=== PATIENT | male | born 1965 | race Caucasian/White ===

== ENCOUNTER 2018-09-17 17:11 | Emergency (ER) | payer SELFPAY ==
[2018-09-17 17:56] LABS: ADD MAN DIFF? NO
[2018-09-17 18:01] LABS: ABNORMAL IP MESSAGE 1; BASOPHILS % 0.2 % (0.0-2.0); HEMOGLOBIN 9.1 g/dl (14.0-18.0); LYMPHOCYTES # 1.1 10^3/ul (0.8-2.9); LYMPHOCYTES % 21.1 % (15.0-51.0); MEAN CORPUSCULAR HEMOGLOBIN 31.3 pg (29.0-33.0); MEAN CORPUSCULAR HGB CONC 33.7 g/dl (32.0-37.0); MEAN CORPUSCULAR VOLUME 92.8 fl (82.0-101.0); MEAN PLATELET VOLUME 8.8 fl (7.4-10.4); MONOCYTE # 0.8 10^3/ul (0.3-0.9); MONOCYTES % 14.8 % (0.0-11.0); NEUTROPHILS % 56.1 % (39.0-77.0); PLATELET COUNT 117 10^3/UL (140-415); POSITIVE DIFF @See below; RED BLOOD COUNT 2.91 10^6/ul (4.70-6.10); RED CELL DISTRIBUTION WIDTH 13.2 % (11.5-14.5)
[2018-09-17 18:01] LABS: WHITE BLOOD COUNT 5.4 10^3/ul (4.8-10.8)
[2018-09-17] MEDS: KETOROLAC 15 MG INJ IV (18:05)
[2018-09-17] MEDS: SOD CHLORIDE 0.9% 1,000 ML IV (18:05)
[2018-09-17] MEDS: ACETAMINOPHEN 500 MG TAB PO (18:08)
[2018-09-17 18:18] LABS: ANION GAP 11 (5-13); BLOOD UREA NITROGEN 14 mg/dl (7-20); CALCIUM 8.8 mg/dl (8.4-10.2); CARBON DIOXIDE 24 mmol/L (21-31); CHLORIDE 98 mmol/L (97-110); CREATININE 0.83 mg/dl (0.61-1.24); Estimated GFR > 60 mL/min (>60); GLUCOSE 109 mg/dl (70-220); SODIUM 133 mmol/L (135-144)
[2018-09-17 19:19] LABS: LYMPHOCYTES % (M) 24 % (15-51); REACTIVE LYMPHOCYTES% (M) 1 % (0-0)
[2018-09-17 19:19] LABS: SEGMENTED NEUTROPHILS (M) % 67 % (39-77)
[2018-09-17 19:20] LABS: METAMYELOCYTES %M 1 % (0-0); MONOCYTES % (M) 6 % (0-11); PATH REVIEW? YES
[2018-09-18 08:53] LABS: PATH REVIEW DK
[2018-09-18 09:09] LABS: BAND NEUTROPHILS % (M) 1 % (0-4); LYMPHOCYTES #M 1.4 10^3/ul (0.8-2.9); LYMPHOCYTES % (M) 27 % (15-51); MONOCYTE #M 0.3 10^3/ul (0.3-0.9); MONOCYTES % (M) 7 % (0-11); MYELOCYTES % (M) 1 % (0-0); SEG NEUT #M 3.2 10^3/ul (1.7-7.5); SEGMENTED NEUTROPHILS (M) % 60 % (39-77)
== END 2018-09-17 19:10 | disposition home or self-care (01) ==
LOC: E/R 17:11
DX: J20.9 Acute bronchitis, unspecified (principal); I10 Essential (primary) hypertension; E11.9 Type 2 diabetes mellitus without complications; D64.9 Anemia, unspecified
CPT/HCPCS: 36415; 71045; 80048; 85025; 96374; 99284-25

== ENCOUNTER 2018-09-18 14:36 | Inpatient (IN) | payer MEDICAID ==
[2018-09-18 15:20] LABS: ADD MAN DIFF? NO
[2018-09-18 15:24] LABS: WHITE BLOOD COUNT 5.8 10^3/ul (4.8-10.8)
[2018-09-18 15:24] LABS: BASOPHILS % 0.2 % (0.0-2.0); HEMATOCRIT 25.7 % (42.0-52.0); HEMOGLOBIN 8.8 g/dl (14.0-18.0); LYMPHOCYTES # 1.4 10^3/ul (0.8-2.9); LYMPHOCYTES % 24.2 % (15.0-51.0); MEAN CORPUSCULAR HEMOGLOBIN 31.1 pg (29.0-33.0); MEAN CORPUSCULAR HGB CONC 34.2 g/dl (32.0-37.0); MEAN CORPUSCULAR VOLUME 90.8 fl (82.0-101.0); MONOCYTE # 0.8 10^3/ul (0.3-0.9); MONOCYTES % 13.1 % (0.0-11.0); NEUTROPHIL # 3.3 10^3/ul (1.6-7.5); NEUTROPHILS % 57.5 % (39.0-77.0); PLATELET COUNT 107 10^3/UL (140-415); POSITIVE DIFF @See below; RED BLOOD COUNT 2.83 10^6/ul (4.70-6.10); RED CELL DISTRIBUTION WIDTH 13.4 % (11.5-14.5)
[2018-09-18 15:46] LABS: ALANINE AMINOTRANSFERASE 22 IU/L (13-69); ALBUMIN 3.4 g/dl (3.3-4.9); ALKALINE PHOSPHATASE 81 IU/L (42-121); ANION GAP 13 (5-13); ASPARTATE AMINO TRANSFERASE 17 IU/L (15-46); BILIRUBIN,INDIRECT 0.6 mg/dl (0-1.1); BILIRUBIN,TOTAL 0.6 mg/dl (0.2-1.3); BLOOD UREA NITROGEN 21 mg/dl (7-20); CALCIUM 8.5 mg/dl (8.4-10.2); CARBON DIOXIDE 20 mmol/L (21-31); CHLORIDE 100 mmol/L (97-110); CREATININE 1.15 mg/dl (0.61-1.24); Estimated GFR > 60 mL/min (>60); GLUCOSE 152 mg/dl (70-220); LACTATE DEHYDROGENASE 597 IU/L (313-618); LIPASE 23 U/L (23-300); POTASSIUM 3.8 mmol/L (3.5-5.1); SODIUM 133 mmol/L (135-144); TOTAL PROTEIN 7.6 g/dl (6.1-8.1)
[2018-09-18 16:05] LABS: LYMPHOCYTES #M 1.5 10^3/ul (0.8-2.9); LYMPHOCYTES % (M) 27 % (15-51); MONOCYTE #M 0.1 10^3/ul (0.3-0.9); MONOCYTES % (M) 2 % (0-11); PLATELET ESTIMATE NORMAL; POLYCHROMASIA 1+ (0-0); PROMYELOCYTES % (M) 1 % (0-0); SEGMENTED NEUTROPHILS (M) % 63 % (39-77); SMUDGE%M 3 % (0-0)
[2018-09-18] MEDS ORDERED: ONDANSETRON 4 MG INJ IV (16:30)
[2018-09-18] MEDS ORDERED: ACETAMINOPHEN 325 MG TAB PO (16:30)
[2018-09-18] MEDS ORDERED: GLUCOSE GEL 15 GRAM TUBE BUCCAL (18:00)
[2018-09-18] MEDS ORDERED: DEXTROSE 50% 50 ML SYRINGE IV ×2 (18:00)
[2018-09-18] MEDS ORDERED: GLUCOSE GEL 15 GRAM TUBE PO ×2 (18:00)
[2018-09-18] MEDS ORDERED: GLUCAGON 1 MG INJ IM (18:00)
[2018-09-18] MEDS: INSULIN ASPART [NOVOLOG] 3 ML PEN SC ×2 (18:00→21:00)
[2018-09-18 19:17] LABS: HEMOGLOBIN A1C 9.6 % (0-5.9)
[2018-09-18 19:25] LABS: IRON 18 ug/dl (35-150)
[2018-09-18 19:34] LABS: % IRON SATURATION 9 % SAT (22-52); TOTAL IRON BINDING CAPACITY 192 ug/dl (241-421)
[2018-09-18] MEDS: SOD CHLORIDE 0.9% 1,000 ML IV (20:50)
[2018-09-18] MEDS: LISINOPRIL 20 MG TAB PO (22:04)
[2018-09-18] MEDS: METOPROLOL 50 MG TAB PO (22:05)
[2018-09-18] MEDS: POLYETHYLENE GLYCOL 17 GM PACKET PO (22:08)
[2018-09-18] MEDS: INSULIN GLARGINE [LANTus] (100 UNITS/ML) SYG SC (22:14)
[2018-09-19] MEDS: SOD CHLORIDE 0.9% 1,000 ML IV ×2 (04:00→12:27)
[2018-09-19 06:23] LABS: ABNORMAL IP MESSAGE 1; MEAN CORPUSCULAR HGB CONC 33.3 g/dl (32.0-37.0); MEAN PLATELET VOLUME 9.3 fl (7.4-10.4); PLATELET COUNT 115 10^3/UL (140-415); POSITIVE DIFF @See below; RED BLOOD COUNT 2.58 10^6/ul (4.70-6.10); RED CELL DISTRIBUTION WIDTH 13.6 % (11.5-14.5)
[2018-09-19 06:23] LABS: WHITE BLOOD COUNT 2.8 10^3/ul (4.8-10.8)
[2018-09-19 06:28] LABS: ADD MAN DIFF? YES
[2018-09-19 06:46] LABS: CHOL/HDL RATIO 3.5 RATIO; CHOLESTEROL 84 mg/dl (100-200); HDL CHOLESTEROL 24 mg/dl (28-71); LDL CHOLESTEROL,CALCULATED 46 mg/dl; MAGNESIUM 1.9 mg/dl (1.7-2.5); TRIGLYCERIDES 70 mg/dl (0-149)
[2018-09-19 06:46] LABS: PHOSPHORUS 3.3 mg/dl (2.5-4.9)
[2018-09-19 06:51] LABS: ALANINE AMINOTRANSFERASE 20 IU/L (13-69); ALBUMIN/GLOBULIN RATIO 0.81; ALKALINE PHOSPHATASE 67 IU/L (42-121); ANION GAP 9 (5-13); ASPARTATE AMINO TRANSFERASE 13 IU/L (15-46); BILIRUBIN,INDIRECT 0.5 mg/dl (0-1.1); BILIRUBIN,TOTAL 0.5 mg/dl (0.2-1.3); BLOOD UREA NITROGEN 16 mg/dl (7-20); CALCIUM 8.6 mg/dl (8.4-10.2); CARBON DIOXIDE 22 mmol/L (21-31); CHLORIDE 104 mmol/L (97-110); CREATININE 0.75 mg/dl (0.61-1.24); Estimated GFR > 60 mL/min (>60); GLUCOSE 129 mg/dl (70-220); POTASSIUM 3.6 mmol/L (3.5-5.1); SODIUM 135 mmol/L (135-144); TOTAL PROTEIN 6.7 g/dl (6.1-8.1)
[2018-09-19 07:58] LABS: ANISOCYTOSIS 1+ (0-0); BAND NEUTROPHILS #M 0.1 10^3/ul (0.0-0.6); BAND NEUTROPHILS % (M) 5 % (0-4); BURR CELLS 1+ (0-0); LYMPHOCYTES #M 1.2 10^3/ul (0.8-2.9); LYMPHOCYTES % (M) 44 % (15-51); MONOCYTES % (M) 1 % (0-11); MYELOCYTES % (M) 1 % (0-0); PLATELET ESTIMATE DECREASED; POIKILOCYTOSIS 1+ (0-0); POLYCHROMASIA 1+ (0-0); PROMYELOCYTES % (M) 2 % (0-0); SEG NEUT #M 1.2 10^3/ul (1.6-7.5); SEGMENTED NEUTROPHILS (M) % 43 % (39-77); SMUDGE%M 10 % (0-0)
[2018-09-19] MEDS: POLYETHYLENE GLYCOL 17 GM PACKET PO ×2 (08:10→21:00)
[2018-09-19] MEDS: LISINOPRIL 20 MG TAB PO (08:11)
[2018-09-19] MEDS: METOPROLOL 50 MG TAB PO (08:11)
[2018-09-19] MEDS: INSULIN ASPART [NOVOLOG] 3 ML PEN SC ×4 (08:12→22:00)
[2018-09-19 08:27] LABS: C-REACTIVE PROTEIN 24.7 mg/dl (0.0-0.9)
[2018-09-19 08:42] LABS: ERYTHROCYTE SEDIMENTATION RATE 128 mm/Hr (0-20)
[2018-09-19 11:14] LABS: PLATELET COUNT 115 10^3/UL (140-415)
[2018-09-19 11:28] LABS: URIC ACID 3.8 mg/dl (3.1-7.9)
[2018-09-19 11:30] LABS: PARTIAL THROMBOPLASTIN TIME 35.3 Sec (23.0-35.0); PROTIME 15.3 Sec (11.9-14.9); PT RATIO 1.2
[2018-09-19 11:31] LABS: THROMBIN TIME 13.7 SEC (13.8-19.1)
[2018-09-19 11:34] LABS: D-DIMER 2830.41 ng/ml (<460)
[2018-09-19] MEDS: MAGNESIUM CITRATE 300 ML BTL PO (12:24)
[2018-09-19 17:21] LABS: OCCULT BLOOD STOOL NEGATIVE (NEGATIVE)
[2018-09-19] MEDS: ACETAMINOPHEN 325 MG TAB PO (19:35)
[2018-09-19] MEDS: INSULIN GLARGINE [LANTus] (100 UNITS/ML) SYG SC (21:58)
[2018-09-20 05:40] LABS: ABNORMAL IP MESSAGE 1; HEMATOCRIT 23.7 % (42.0-52.0); HEMOGLOBIN 7.9 g/dl (14.0-18.0); MEAN CORPUSCULAR HEMOGLOBIN 31.2 pg (29.0-33.0); MEAN CORPUSCULAR HGB CONC 33.3 g/dl (32.0-37.0); MEAN CORPUSCULAR VOLUME 93.7 fl (82.0-101.0); MEAN PLATELET VOLUME 8.6 fl (7.4-10.4); PLATELET COUNT 115 10^3/UL (140-415); POSITIVE DIFF @See below; RED BLOOD COUNT 2.53 10^6/ul (4.70-6.10); RED CELL DISTRIBUTION WIDTH 13.7 % (11.5-14.5)
[2018-09-20 05:40] LABS: WHITE BLOOD COUNT 3.8 10^3/ul (4.8-10.8)
[2018-09-20 05:53] LABS: PHOSPHORUS 3.1 mg/dl (2.5-4.9)
[2018-09-20 05:58] LABS: ADD MAN DIFF? YES
[2018-09-20 06:12] LABS: ALANINE AMINOTRANSFERASE 25 IU/L (13-69); ALBUMIN 3.1 g/dl (3.3-4.9); ALBUMIN/GLOBULIN RATIO 0.83; ALKALINE PHOSPHATASE 77 IU/L (42-121); ANION GAP 8 (5-13); ASPARTATE AMINO TRANSFERASE 17 IU/L (15-46); BILIRUBIN,INDIRECT 0.5 mg/dl (0-1.1); BILIRUBIN,TOTAL 0.5 mg/dl (0.2-1.3); BLOOD UREA NITROGEN 12 mg/dl (7-20); CALCIUM 8.3 mg/dl (8.4-10.2); CARBON DIOXIDE 25 mmol/L (21-31); CHLORIDE 104 mmol/L (97-110); CREATININE 0.71 mg/dl (0.61-1.24); Estimated GFR > 60 mL/min (>60); GLUCOSE 139 mg/dl (70-220); POTASSIUM 3.9 mmol/L (3.5-5.1); SODIUM 137 mmol/L (135-144); TOTAL PROTEIN 6.8 g/dl (6.1-8.1)
[2018-09-20 06:18] LABS: INR 1.13; PROTIME 14.6 Sec (11.9-14.9); PT RATIO 1.1
[2018-09-20 06:19] LABS: PARTIAL THROMBOPLASTIN TIME 33.1 Sec (23.0-35.0)
[2018-09-20] MEDS: SOD CHLORIDE 0.9% 1,000 ML IV (08:06)
[2018-09-20 08:07] LABS: ANISOCYTOSIS 1+ (0-0); BAND NEUTROPHILS % (M) 2 % (0-4); BASOPHILS % (M) 2 % (0-2); LYMPHOCYTES #M 1.3 10^3/ul (0.8-2.9); LYMPHOCYTES % (M) 36 % (15-51); MONOCYTE #M 0.1 10^3/ul (0.3-0.9); MONOCYTES % (M) 4 % (0-11); PLATELET ESTIMATE DECREASED; POLYCHROMASIA 1+ (0-0); REACTIVE LYMPHOCYTES% (M) 2 % (0-0); SEGMENTED NEUTROPHILS (M) % 52 % (39-77); SMUDGE%M 8 % (0-0); TEAR DROP CELLS 1+ (0-0)
[2018-09-20] MEDS: POLYETHYLENE GLYCOL 17 GM PACKET PO ×2 (08:07→20:44)
[2018-09-20] MEDS: METOPROLOL 50 MG TAB PO (08:07)
[2018-09-20] MEDS: LISINOPRIL 20 MG TAB PO (08:08)
[2018-09-20] MEDS: INSULIN ASPART [NOVOLOG] 3 ML PEN SC ×4 (08:20→20:47)
[2018-09-20 11:41] LABS: LACTIC ACID 1.2 mmol/L (0.5-2.0)
[2018-09-20] MEDS: ACETAMINOPHEN 325 MG TAB PO (14:28)
[2018-09-20] MEDS: INSULIN GLARGINE [LANTus] (100 UNITS/ML) SYG SC (20:46)
[2018-09-21] MEDS ORDERED: hydrALAzine 20 MG INJ IV (03:30)
[2018-09-21] MEDS: SOD CHLORIDE 0.9% 1,000 ML IV ×2 (03:36→23:20)
[2018-09-21] MEDS: INSULIN ASPART [NOVOLOG] 3 ML PEN SC ×4 (08:53→21:28)
[2018-09-21 11:47] LABS: HAPTOGLOBIN 470 mg/dL (43-212)
[2018-09-21] MEDS: ACETAMINOPHEN 325 MG TAB PO ×2 (11:48→19:35)
[2018-09-21] MEDS: METOPROLOL 50 MG TAB PO (11:54)
[2018-09-21] MEDS: LISINOPRIL 20 MG TAB PO (11:55)
[2018-09-21] MEDS ORDERED: ALBUTEROL/IPRATROPIUM (NEB) 3 ML AMP HHN (12:30)
[2018-09-21] MEDS: POLYETHYLENE GLYCOL 17 GM PACKET PO ×2 (12:30→21:28)
[2018-09-21 12:34] LABS: ABNORMAL IP MESSAGE 1; HEMATOCRIT 21.5 % (42.0-52.0); HEMOGLOBIN 7.1 g/dl (14.0-18.0); MEAN CORPUSCULAR HEMOGLOBIN 31.3 pg (29.0-33.0); MEAN CORPUSCULAR VOLUME 94.7 fl (82.0-101.0); MEAN PLATELET VOLUME 8.6 fl (7.4-10.4); PLATELET COUNT 109 10^3/UL (140-415); POSITIVE DIFF @See below; RED BLOOD COUNT 2.27 10^6/ul (4.70-6.10); RED CELL DISTRIBUTION WIDTH 13.4 % (11.5-14.5)
[2018-09-21 12:37] LABS: ADD MAN DIFF? YES
[2018-09-21 13:16] LABS: ALANINE AMINOTRANSFERASE 29 IU/L (13-69); ALBUMIN 2.9 g/dl (3.3-4.9); ALKALINE PHOSPHATASE 66 IU/L (42-121); ANION GAP 6 (5-13); ASPARTATE AMINO TRANSFERASE 16 IU/L (15-46); BILIRUBIN,INDIRECT 0.5 mg/dl (0-1.1); BILIRUBIN,TOTAL 0.5 mg/dl (0.2-1.3); BLOOD UREA NITROGEN 8 mg/dl (7-20); CALCIUM 7.9 mg/dl (8.4-10.2); CARBON DIOXIDE 25 mmol/L (21-31); CHLORIDE 104 mmol/L (97-110); CREATININE 0.63 mg/dl (0.61-1.24); Estimated GFR > 60 mL/min (>60); GLUCOSE 153 mg/dl (70-220); POTASSIUM 3.9 mmol/L (3.5-5.1); SODIUM 135 mmol/L (135-144); TOTAL PROTEIN 6.5 g/dl (6.1-8.1)
[2018-09-21 14:03] LABS: ANISOCYTOSIS 1+ (0-0); BAND NEUTROPHILS % (M) 2 % (0-4); BURR CELLS 1+ (0-0); LYMPHOCYTES #M 1.3 10^3/ul (0.8-2.9); LYMPHOCYTES % (M) 46 % (15-51); MICROCYTOSIS 1+ (0-0); MONOCYTE #M 0.1 10^3/ul (0.3-0.9); MONOCYTES % (M) 5 % (0-11); MYELOCYTES % (M) 2 % (0-0); OVALOCYTES 1+ (0-0); PLATELET ESTIMATE DECREASED; POLYCHROMASIA 3+ (0-0); SEG NEUT #M 1.1 10^3/ul (1.6-7.5); SEGMENTED NEUTROPHILS (M) % 35 % (39-77); SMUDGE%M 5 % (0-0); TEAR DROP CELLS 1+ (0-0)
[2018-09-21 19:28] LABS: OCCULT BLOOD STOOL NEGATIVE (NEGATIVE)
[2018-09-21] MEDS: INSULIN GLARGINE [LANTus] (100 UNITS/ML) SYG SC (21:26)
[2018-09-22 06:01] LABS: ABNORMAL IP MESSAGE 1; HEMATOCRIT 21.2 % (42.0-52.0); MEAN CORPUSCULAR HEMOGLOBIN 31.2 pg (29.0-33.0); MEAN CORPUSCULAR HGB CONC 32.5 g/dl (32.0-37.0); MEAN CORPUSCULAR VOLUME 95.9 fl (82.0-101.0); PLATELET COUNT 106 10^3/UL (140-415); POSITIVE DIFF @See below; RED BLOOD COUNT 2.21 10^6/ul (4.70-6.10); RED CELL DISTRIBUTION WIDTH 13.8 % (11.5-14.5)
[2018-09-22 06:14] LABS: ADD MAN DIFF? YES; HEMOGLOBIN 6.9 g/dl (14.0-18.0)
[2018-09-22 06:28] LABS: ANION GAP 11 (5-13); BLOOD UREA NITROGEN 9 mg/dl (7-20); CALCIUM 7.9 mg/dl (8.4-10.2); CARBON DIOXIDE 26 mmol/L (21-31); CHLORIDE 102 mmol/L (97-110); CREATININE 0.64 mg/dl (0.61-1.24); Estimated GFR > 60 mL/min (>60); GLUCOSE 115 mg/dl (70-220); POTASSIUM 4.1 mmol/L (3.5-5.1); SODIUM 139 mmol/L (135-144)
[2018-09-22 07:56] LABS: EOSINOPHILS % (M) 1 % (0-7); GIANT THROMBO% (M) 2 % (0-0); LYMPHOCYTES #M 1.5 10^3/ul (0.8-2.9); LYMPHOCYTES % (M) 52 % (15-51); MONOCYTE #M 0.1 10^3/ul (0.3-0.9); MONOCYTES % (M) 5 % (0-11); MYELOCYTES % (M) 2 % (0-0); PLATELET ESTIMATE DECREASED; SEGMENTED NEUTROPHILS (M) % 31 % (39-77); SMUDGE%M 18 % (0-0)
[2018-09-22] MEDS: INSULIN ASPART [NOVOLOG] 3 ML PEN SC ×4 (08:00→20:57)
[2018-09-22] MEDS: POLYETHYLENE GLYCOL 17 GM PACKET PO ×2 (08:59→22:25)
[2018-09-22] MEDS: METOPROLOL 50 MG TAB PO (09:00)
[2018-09-22] MEDS: LISINOPRIL 20 MG TAB PO (09:00)
[2018-09-22 11:20] LABS: ABNORMAL IP MESSAGE 1; HEMATOCRIT 21.6 % (42.0-52.0); HEMOGLOBIN 7.1 g/dl (14.0-18.0); MEAN CORPUSCULAR HGB CONC 32.9 g/dl (32.0-37.0); MEAN CORPUSCULAR VOLUME 94.3 fl (82.0-101.0); MEAN PLATELET VOLUME 8.9 fl (7.4-10.4); PLATELET COUNT 105 10^3/UL (140-415); POSITIVE DIFF @See below; RED BLOOD COUNT 2.29 10^6/ul (4.70-6.10); RED CELL DISTRIBUTION WIDTH 13.7 % (11.5-14.5)
[2018-09-22 11:20] LABS: WHITE BLOOD COUNT 2.9 10^3/ul (4.8-10.8)
[2018-09-22 11:22] LABS: ADD MAN DIFF? YES
[2018-09-22 11:37] LABS: LACTIC ACID 0.9 mmol/L (0.5-2.0)
[2018-09-22] MEDS: FUROSEMIDE 40 MG INJ IV (12:47)
[2018-09-22 12:48] LABS: ANISOCYTOSIS 1+ (0-0); BASOPHILS % (M) 1 % (0-2); LYMPHOCYTES #M 1.2 10^3/ul (0.8-2.9); LYMPHOCYTES % (M) 44 % (15-51); METAMYELOCYTES %M 1 % (0-0); MICROCYTOSIS 1+ (0-0); MONOCYTES % (M) 3 % (0-11); MYELOCYTES % (M) 2 % (0-0); PLATELET ESTIMATE DECREASED; POLYCHROMASIA 1+ (0-0); REACTIVE LYMPHOCYTES% (M) 2 % (0-0); SEGMENTED NEUTROPHILS (M) % 40 % (39-77); SMUDGE%M 11 % (0-0)
[2018-09-22] MEDS: CEFEPIME 2GM/50 ML (PMX) 50 ML IVPB ×2 (14:53→22:25)
[2018-09-22] MEDS: INSULIN GLARGINE [LANTus] (100 UNITS/ML) SYG SC (20:57)
[2018-09-22] MEDS ORDERED: VANCOMYCIN IV PER PHARMACY XX (22:00)
[2018-09-22] MEDS: VANCOMYCIN HCL 1.5 GM in SOD CHLORIDE 0.9% 250 ML IVPB (23:33)
[2018-09-23 05:40] LABS: WHITE BLOOD COUNT 3.5 10^3/ul (4.8-10.8)
[2018-09-23 05:40] LABS: ABNORMAL IP MESSAGE 1; HEMATOCRIT 21.1 % (42.0-52.0); HEMOGLOBIN 7.2 g/dl (14.0-18.0); MEAN CORPUSCULAR HEMOGLOBIN 31.7 pg (29.0-33.0); MEAN CORPUSCULAR HGB CONC 34.1 g/dl (32.0-37.0); MEAN PLATELET VOLUME 8.8 fl (7.4-10.4); PLATELET COUNT 95 10^3/UL (140-415); POSITIVE DIFF @See below; RED BLOOD COUNT 2.27 10^6/ul (4.70-6.10); RED CELL DISTRIBUTION WIDTH 13.4 % (11.5-14.5)
[2018-09-23] MEDS: FUROSEMIDE 40 MG INJ IV (05:50)
[2018-09-23] MEDS: CEFEPIME 2GM/50 ML (PMX) 50 ML IVPB ×3 (05:50→22:01)
[2018-09-23 05:54] LABS: ADD MAN DIFF? YES
[2018-09-23] MEDS: ACETAMINOPHEN 325 MG TAB PO ×2 (05:58→13:33)
[2018-09-23 06:01] LABS: MAGNESIUM 1.8 mg/dl (1.7-2.5)
[2018-09-23 06:03] LABS: ANION GAP 9 (5-13); BLOOD UREA NITROGEN 12 mg/dl (7-20); CARBON DIOXIDE 26 mmol/L (21-31); CHLORIDE 99 mmol/L (97-110); CREATININE 0.61 mg/dl (0.61-1.24); Estimated GFR > 60 mL/min (>60); GLUCOSE 151 mg/dl (70-220); POTASSIUM 3.9 mmol/L (3.5-5.1); SODIUM 134 mmol/L (135-144)
[2018-09-23 07:26] LABS: ANISOCYTOSIS 1+ (0-0); BAND NEUTROPHILS #M 0.2 10^3/ul (0.0-0.6); BAND NEUTROPHILS % (M) 6 % (0-4); LYMPHOCYTES #M 1.7 10^3/ul (0.8-2.9); LYMPHOCYTES % (M) 49 % (15-51); METAMYELOCYTES %M 1 % (0-0); MICROCYTOSIS 1+ (0-0); MONOCYTES % (M) 2 % (0-11); MYELOCYTES % (M) 1 % (0-0); PLATELET ESTIMATE DECREASED; POLYCHROMASIA 1+ (0-0); REACTIVE LYMPHOCYTES% (M) 2 % (0-0); SEG NEUT #M 1.2 10^3/ul (1.6-7.5); SEGMENTED NEUTROPHILS (M) % 33 % (39-77); SMUDGE%M 3 % (0-0)
[2018-09-23] MEDS: INSULIN ASPART [NOVOLOG] 3 ML PEN SC ×4 (08:42→22:21)
[2018-09-23] MEDS: POLYETHYLENE GLYCOL 17 GM PACKET PO ×2 (09:09→21:00)
[2018-09-23] MEDS: VANCOMYCIN 1 GM 250 ML IVPB ×2 (09:10→19:21)
[2018-09-23] MEDS: LISINOPRIL 10 MG TAB PO ×2 (09:10→22:04)
[2018-09-23 12:12] LABS: ADD UMIC NO; UR ASCORBIC ACID NEGATIVE (NEGATIVE); UR BACTERIA FEW /HPF (NONE SEEN); UR BILIRUBIN (Dip) NEGATIVE (NEGATIVE); UR BLOOD (Dip) NEGATIVE (NEGATIVE); UR CLARITY SLIGHTLY CLOUDY (CLEAR); UR COLOR YELLOW (YELLOW); UR GLUCOSE (Dip) 3+ mg/dL (NEGATIVE); UR KETONES (Dip) TRACE mg/dL (NEGATIVE); UR LEUKOCYTE ESTERASE (Dip) NEGATIVE Leu/ul (NEGATIVE); UR MUCUS FEW /HPF (NONE SEEN); UR NITRITE (Dip) NEGATIVE (NEGATIVE); UR RBC 0 /HPF (0-5); UR SPECIFIC GRAVITY (Dip) 1.018 (1.003-1.030); UR TOTAL PROTEIN (Dip) NEGATIVE (NEGATIVE); UR UROBILINOGEN (Dip) NEGATIVE (NEGATIVE); UR WBC 2 /HPF (0-5)
[2018-09-23] MEDS: POTASSIUM CHLORIDE (SR) 20 MEQ TAB PO (22:00)
[2018-09-23] MEDS: MAGNESIUM SULFATE 2 GM/50 ML 50 ML IVPB (22:01)
[2018-09-23] MEDS: FUROSEMIDE 20 MG INJ IV (22:03)
[2018-09-23] MEDS: INSULIN GLARGINE [LANTus] (100 UNITS/ML) SYG SC (22:20)
[2018-09-24 03:02] LABS: WHITE BLOOD COUNT 3.1 10^3/ul (4.8-10.8)
[2018-09-24 03:02] LABS: ABNORMAL IP MESSAGE 1; HEMATOCRIT 21.9 % (42.0-52.0); HEMOGLOBIN 7.2 g/dl (14.0-18.0); MEAN CORPUSCULAR HGB CONC 32.9 g/dl (32.0-37.0); MEAN CORPUSCULAR VOLUME 94.4 fl (82.0-101.0); MEAN PLATELET VOLUME 8.8 fl (7.4-10.4); PLATELET COUNT 92 10^3/UL (140-415); POSITIVE DIFF @See below; RED BLOOD COUNT 2.32 10^6/ul (4.70-6.10); RED CELL DISTRIBUTION WIDTH 13.4 % (11.5-14.5)
[2018-09-24 03:26] LABS: ADD MAN DIFF? YES
[2018-09-24 03:40] LABS: MAGNESIUM 2.6 mg/dl (1.7-2.5)
[2018-09-24 03:41] LABS: ANION GAP 8 (5-13); BLOOD UREA NITROGEN 17 mg/dl (7-20); CALCIUM 7.9 mg/dl (8.4-10.2); CARBON DIOXIDE 23 mmol/L (21-31); CHLORIDE 103 mmol/L (97-110); CREATININE 0.64 mg/dl (0.61-1.24); Estimated GFR > 60 mL/min (>60); GLUCOSE 174 mg/dl (70-220); POTASSIUM 4.4 mmol/L (3.5-5.1); SODIUM 134 mmol/L (135-144)
[2018-09-24 03:50] LABS: VANCOMYCIN,TROUGH 9.2 ug/ml (10.0-20.0)
[2018-09-24] MEDS: VANCOMYCIN 1 GM 250 ML IVPB (04:44)
[2018-09-24 05:03] LABS: ANISOCYTOSIS 1+ (0-0); BASOPHILS % (M) 1 % (0-2); GIANT THROMBO% (M) 2 % (0-0); LYMPHOCYTES #M 1.9 10^3/ul (0.8-2.9); LYMPHOCYTES % (M) 62 % (15-51); MONOCYTES % (M) 3 % (0-11); MYELOCYTES % (M) 2 % (0-0); PLATELET ESTIMATE DECREASED; POLYCHROMASIA 1+ (0-0); SEGMENTED NEUTROPHILS (M) % 31 % (39-77); SMUDGE%M 24 % (0-0)
[2018-09-24] MEDS: CEFEPIME 2GM/50 ML (PMX) 50 ML IVPB ×3 (06:57→22:22)
[2018-09-24] MEDS: FUROSEMIDE 40 MG INJ IV (06:58)
[2018-09-24] MEDS: POLYETHYLENE GLYCOL 17 GM PACKET PO ×2 (08:30→20:48)
[2018-09-24] MEDS: LISINOPRIL 10 MG TAB PO ×2 (08:30→20:48)
[2018-09-24] MEDS: INSULIN ASPART [NOVOLOG] 3 ML PEN SC ×4 (08:39→20:47)
[2018-09-24] MEDS: VANCOMYCIN HCL 1.25 GM in SOD CHLORIDE 0.9% 250 ML IVPB ×2 (11:30→18:29)
[2018-09-24] MEDS: ACETAMINOPHEN 325 MG TAB PO ×2 (12:37→23:39)
[2018-09-24] MEDS: ALLOPURINOL 300 MG TAB PO (15:59)
[2018-09-24] MEDS: INSULIN GLARGINE [LANTus] (100 UNITS/ML) SYG SC (20:45)
[2018-09-25] MEDS: VANCOMYCIN HCL 1.25 GM in SOD CHLORIDE 0.9% 250 ML IVPB ×3 (02:44→20:45)
[2018-09-25 04:33] LABS: IMMEDIATE SPIN CROSSMATCH 1 2
[2018-09-25 05:33] LABS: WHITE BLOOD COUNT 3.6 10^3/ul (4.8-10.8)
[2018-09-25 05:33] LABS: ABNORMAL IP MESSAGE 1; HEMATOCRIT 24.6 % (42.0-52.0); HEMOGLOBIN 8.3 g/dl (14.0-18.0); MEAN CORPUSCULAR HEMOGLOBIN 31.3 pg (29.0-33.0); MEAN CORPUSCULAR HGB CONC 33.7 g/dl (32.0-37.0); MEAN CORPUSCULAR VOLUME 92.8 fl (82.0-101.0); MEAN PLATELET VOLUME 9.2 fl (7.4-10.4); PLATELET COUNT 91 10^3/UL (140-415); POSITIVE DIFF @See below; RED BLOOD COUNT 2.65 10^6/ul (4.70-6.10); RED CELL DISTRIBUTION WIDTH 13.4 % (11.5-14.5)
[2018-09-25 05:46] LABS: ADD MAN DIFF? YES
[2018-09-25 06:07] LABS: ANION GAP 7 (5-13); BLOOD UREA NITROGEN 11 mg/dl (7-20); CALCIUM 7.8 mg/dl (8.4-10.2); CARBON DIOXIDE 25 mmol/L (21-31); CHLORIDE 102 mmol/L (97-110); CREATININE 0.56 mg/dl (0.61-1.24); Estimated GFR > 60 mL/min (>60); GLUCOSE 176 mg/dl (70-220); POTASSIUM 4.1 mmol/L (3.5-5.1); SODIUM 134 mmol/L (135-144)
[2018-09-25 06:11] LABS: LACTATE DEHYDROGENASE 432 IU/L (313-618)
[2018-09-25 06:11] LABS: URIC ACID 2.7 mg/dl (3.1-7.9)
[2018-09-25] MEDS: FUROSEMIDE 40 MG INJ IV (06:27)
[2018-09-25] MEDS: CEFEPIME 2GM/50 ML (PMX) 50 ML IVPB ×3 (06:28→23:30)
[2018-09-25] MEDS: ALLOPURINOL 300 MG TAB PO (08:31)
[2018-09-25] MEDS: POLYETHYLENE GLYCOL 17 GM PACKET PO ×2 (08:31→20:54)
[2018-09-25] MEDS: LISINOPRIL 10 MG TAB PO ×2 (08:32→20:53)
[2018-09-25] MEDS: INSULIN ASPART [NOVOLOG] 3 ML PEN SC ×4 (08:34→20:53)
[2018-09-25 11:02] LABS: VANCOMYCIN,TROUGH 13.1 ug/ml (10.0-20.0)
[2018-09-25] MEDS ORDERED: ONDANSETRON INJ 8 MG in SOD CHLORIDE 0.9% 50 ML IV (14:30)
[2018-09-25] MEDS: ONDANSETRON INJ 16 MG, DEXAMETHASONE 4 MG/ML 20 MG in SOD CHLORIDE 0.9% 50 ML IV (15:46)
[2018-09-25] MEDS: SOD CHLORIDE 0.9% IV ×2 (16:11→17:56)
[2018-09-25] MEDS: DAUNORUBICIN IV (16:11)
[2018-09-25] MEDS: CYTARABINE IV (17:56)
[2018-09-25] MEDS: INSULIN GLARGINE [LANTus] (100 UNITS/ML) SYG SC (20:51)
[2018-09-26] MEDS: VANCOMYCIN HCL 1.25 GM in SOD CHLORIDE 0.9% 250 ML IVPB ×3 (03:59→18:37)
[2018-09-26 05:24] LABS: WHITE BLOOD COUNT 2.1 10^3/ul (4.8-10.8)
[2018-09-26 05:24] LABS: ABNORMAL IP MESSAGE 1; HEMATOCRIT 29.8 % (42.0-52.0); HEMOGLOBIN 9.9 g/dl (14.0-18.0); MEAN CORPUSCULAR HGB CONC 33.2 g/dl (32.0-37.0); MEAN CORPUSCULAR VOLUME 93.4 fl (82.0-101.0); MEAN PLATELET VOLUME 9.9 fl (7.4-10.4); PLATELET COUNT 88 10^3/UL (140-415); POSITIVE DIFF @See below; RED BLOOD COUNT 3.19 10^6/ul (4.70-6.10); RED CELL DISTRIBUTION WIDTH 13.8 % (11.5-14.5)
[2018-09-26 05:36] LABS: ADD MAN DIFF? YES
[2018-09-26] MEDS: CEFEPIME 2GM/50 ML (PMX) 50 ML IVPB ×3 (05:54→21:19)
[2018-09-26] MEDS: FUROSEMIDE 40 MG INJ IV (05:54)
[2018-09-26 05:55] LABS: ANION GAP 13 (5-13); BLOOD UREA NITROGEN 14 mg/dl (7-20); CALCIUM 8.4 mg/dl (8.4-10.2); CARBON DIOXIDE 23 mmol/L (21-31); CHLORIDE 103 mmol/L (97-110); CREATININE 0.61 mg/dl (0.61-1.24); Estimated GFR > 60 mL/min (>60); GLUCOSE 260 mg/dl (70-220); POTASSIUM 4.4 mmol/L (3.5-5.1); SODIUM 139 mmol/L (135-144)
[2018-09-26] MEDS: FENTAnyl 50 MCG/ML VIAL (07:53)
[2018-09-26] MEDS: MIDAZOLAM 1 MG/ML 2 ML INJ ×2 (07:53→07:54)
[2018-09-26] MEDS: LIDOCAINE 1% (MDV) 20 ML INJ ×3 (07:53→07:54)
[2018-09-26] MEDS: POLYETHYLENE GLYCOL 17 GM PACKET PO ×2 (08:25→21:07)
[2018-09-26] MEDS: ALLOPURINOL 300 MG TAB PO (08:25)
[2018-09-26] MEDS: LISINOPRIL 10 MG TAB PO ×2 (08:27→21:07)
[2018-09-26] MEDS: INSULIN ASPART [NOVOLOG] 3 ML PEN SC ×6 (08:27→21:05)
[2018-09-26 09:33] LABS: BAND NEUTROPHILS #M 0.3 10^3/ul (0.0-0.6); BAND NEUTROPHILS % (M) 16 % (0-4); GIANT THROMBO% (M) 3 % (0-0); LYMPHOCYTES #M 0.5 10^3/ul (0.8-2.9); LYMPHOCYTES % (M) 26 % (15-51); MONOCYTE #M 0.2 10^3/ul (0.3-0.9); MONOCYTES % (M) 10 % (0-11); MYELOCYTES % (M) 3 % (0-0); PLATELET ESTIMATE DECREASED; POIKILOCYTOSIS 2+ (0-0); PROMYELOCYTES % (M) 2 % (0-0); SEG NEUT #M 0.5 10^3/ul (1.6-7.5); SEGMENTED NEUTROPHILS (M) % 24 % (39-77); SMUDGE%M 6 % (0-0)
[2018-09-26] MEDS: ONDANSETRON INJ 16 MG, DEXAMETHASONE 4 MG/ML 20 MG in SOD CHLORIDE 0.9% 50 ML IV (16:24)
[2018-09-26] MEDS: DAUNORUBICIN IV (16:35)
[2018-09-26] MEDS: SOD CHLORIDE 0.9% IV ×2 (16:35→18:02)
[2018-09-26] MEDS: CYTARABINE IV (18:02)
[2018-09-26] MEDS: INSULIN GLARGINE [LANTus] (100 UNITS/ML) SYG SC (21:06)
[2018-09-27] MEDS: VANCOMYCIN HCL 1.25 GM in SOD CHLORIDE 0.9% 250 ML IVPB ×3 (02:25→19:07)
[2018-09-27 05:26] LABS: WHITE BLOOD COUNT 1.3 10^3/ul (4.8-10.8)
[2018-09-27 05:26] LABS: ABNORMAL IP MESSAGE 1; HEMATOCRIT 25.3 % (42.0-52.0); HEMOGLOBIN 8.5 g/dl (14.0-18.0); MEAN CORPUSCULAR HGB CONC 33.6 g/dl (32.0-37.0); MEAN CORPUSCULAR VOLUME 92.3 fl (82.0-101.0); MEAN PLATELET VOLUME 10.3 fl (7.4-10.4); PLATELET COUNT 73 10^3/UL (140-415); POSITIVE DIFF @See below; RED BLOOD COUNT 2.74 10^6/ul (4.70-6.10)
[2018-09-27 05:34] LABS: ADD MAN DIFF? YES
[2018-09-27] MEDS: FUROSEMIDE 40 MG INJ IV (05:37)
[2018-09-27] MEDS: CEFEPIME 2GM/50 ML (PMX) 50 ML IVPB ×3 (05:37→23:31)
[2018-09-27 05:54] LABS: ANION GAP 10 (5-13); BLOOD UREA NITROGEN 18 mg/dl (7-20); CALCIUM 7.8 mg/dl (8.4-10.2); CARBON DIOXIDE 20 mmol/L (21-31); CHLORIDE 106 mmol/L (97-110); CREATININE 0.47 mg/dl (0.61-1.24); Estimated GFR > 60 mL/min (>60); GLUCOSE 231 mg/dl (70-220); POTASSIUM 4.4 mmol/L (3.5-5.1); SODIUM 136 mmol/L (135-144)
[2018-09-27] MEDS: ALLOPURINOL 300 MG TAB PO (08:51)
[2018-09-27] MEDS: LISINOPRIL 10 MG TAB PO ×2 (08:52→21:31)
[2018-09-27] MEDS: POLYETHYLENE GLYCOL 17 GM PACKET PO ×2 (08:52→21:29)
[2018-09-27] MEDS: INSULIN ASPART [NOVOLOG] 3 ML PEN SC ×7 (08:59→21:28)
[2018-09-27 09:10] LABS: ANISOCYTOSIS 1+ (0-0); BAND NEUTROPHILS #M 0.1 10^3/ul (0.0-0.6); BAND NEUTROPHILS % (M) 8 % (0-4); DIMORPHIC RBC 3+ (0-0); LYMPHOCYTES #M 0.4 10^3/ul (0.8-2.9); LYMPHOCYTES % (M) 33 % (15-51); MONOCYTES % (M) 7 % (0-11); MYELOCYTES % (M) 3 % (0-0); PLATELET ESTIMATE DECREASED; POIKILOCYTOSIS 3+ (0-0); PROMYELOCYTES % (M) 1 % (0-0); SEG NEUT #M 0.5 10^3/ul (1.6-7.5); SEGMENTED NEUTROPHILS (M) % 39 % (39-77); SMUDGE%M 10 % (0-0)
[2018-09-27 10:30] LABS: VANCOMYCIN,TROUGH 13.3 ug/ml (10.0-20.0)
[2018-09-27] MEDS: ONDANSETRON INJ 16 MG, DEXAMETHASONE 4 MG/ML 20 MG in SOD CHLORIDE 0.9% 50 ML IV (15:40)
[2018-09-27] MEDS: SOD CHLORIDE 0.9% IV ×2 (16:25→18:12)
[2018-09-27] MEDS: DAUNORUBICIN IV (16:25)
[2018-09-27] MEDS: CYTARABINE IV (18:12)
[2018-09-27] MEDS: INSULIN GLARGINE [LANTus] (100 UNITS/ML) SYG SC (21:29)
[2018-09-28] MEDS: VANCOMYCIN HCL 1.25 GM in SOD CHLORIDE 0.9% 250 ML IVPB ×2 (02:41→11:03)
[2018-09-28] MEDS: ACCU-CHEK XX (03:00)
[2018-09-28] MEDS: INSULIN ASPART [NOVOLOG] 3 ML PEN SC ×8 (03:06→20:51)
[2018-09-28 05:19] LABS: ABNORMAL IP MESSAGE 1; HEMOGLOBIN 8.6 g/dl (14.0-18.0); MEAN CORPUSCULAR HEMOGLOBIN 31.5 pg (29.0-33.0); MEAN CORPUSCULAR HGB CONC 34.4 g/dl (32.0-37.0); MEAN CORPUSCULAR VOLUME 91.6 fl (82.0-101.0); MEAN PLATELET VOLUME 10.2 fl (7.4-10.4); PLATELET COUNT 70 10^3/UL (140-415); POSITIVE DIFF @See below; RED BLOOD COUNT 2.73 10^6/ul (4.70-6.10); RED CELL DISTRIBUTION WIDTH 13.5 % (11.5-14.5)
[2018-09-28] MEDS: CEFEPIME 2GM/50 ML (PMX) 50 ML IVPB ×2 (05:27→14:16)
[2018-09-28 05:29] LABS: PHOSPHORUS 4.1 mg/dl (2.5-4.9)
[2018-09-28 05:29] LABS: MAGNESIUM 2.2 mg/dl (1.7-2.5)
[2018-09-28 05:33] LABS: ANION GAP 8 (5-13); BLOOD UREA NITROGEN 16 mg/dl (7-20); CALCIUM 7.9 mg/dl (8.4-10.2); CARBON DIOXIDE 23 mmol/L (21-31); CHLORIDE 105 mmol/L (97-110); CREATININE 0.48 mg/dl (0.61-1.24); Estimated GFR > 60 mL/min (>60); GLUCOSE 203 mg/dl (70-220); POTASSIUM 4.4 mmol/L (3.5-5.1); SODIUM 136 mmol/L (135-144)
[2018-09-28 05:36] LABS: ADD MAN DIFF? YES
[2018-09-28] MEDS: POLYETHYLENE GLYCOL 17 GM PACKET PO ×2 (08:20→20:43)
[2018-09-28] MEDS: ALLOPURINOL 300 MG TAB PO (08:21)
[2018-09-28] MEDS: LISINOPRIL 10 MG TAB PO ×2 (08:21→20:50)
[2018-09-28] MEDS: FUROSEMIDE 20 MG TAB PO (08:21)
[2018-09-28 08:55] LABS: ANISOCYTOSIS 1+ (0-0); BAND NEUTROPHILS % (M) 9 % (0-4); HYPOCHROMASIA 1+ (0-0); LYMPHOCYTES #M 0.3 10^3/ul (0.8-2.9); LYMPHOCYTES % (M) 38 % (15-51); MONOCYTES % (M) 4 % (0-11); PLATELET ESTIMATE DECREASED; SEG NEUT #M 0.5 10^3/ul (1.6-7.5); SEGMENTED NEUTROPHILS (M) % 47 % (39-77); SMUDGE%M 1 % (0-0)
[2018-09-28] MEDS: FLUCONAZOLE 100 MG TAB PO (16:04)
[2018-09-28] MEDS: SOD CHLORIDE 0.9% IV (17:46)
[2018-09-28] MEDS: CYTARABINE IV (17:46)
[2018-09-28] MEDS: DOXYCYCLINE 100 MG TAB PO (20:43)
[2018-09-28] MEDS: ONDANSETRON 4 MG INJ IV (20:43)
[2018-09-28] MEDS: FAMOTIDINE 20 MG TAB PO (20:43)
[2018-09-28] MEDS: INSULIN GLARGINE [LANTus] (100 UNITS/ML) SYG SC (20:48)
[2018-09-29] MEDS: LEVOFLOXACIN 500 MG TAB PO (05:45)
[2018-09-29 05:46] LABS: WHITE BLOOD COUNT 1.9 10^3/ul (4.8-10.8)
[2018-09-29 05:46] LABS: ABNORMAL IP MESSAGE 1; HEMATOCRIT 25.6 % (42.0-52.0); HEMOGLOBIN 8.8 g/dl (14.0-18.0); MEAN CORPUSCULAR HEMOGLOBIN 31.2 pg (29.0-33.0); MEAN CORPUSCULAR HGB CONC 34.4 g/dl (32.0-37.0); MEAN CORPUSCULAR VOLUME 90.8 fl (82.0-101.0); MEAN PLATELET VOLUME 10.1 fl (7.4-10.4); PLATELET COUNT 67 10^3/UL (140-415); POSITIVE DIFF @See below; RED BLOOD COUNT 2.82 10^6/ul (4.70-6.10); RED CELL DISTRIBUTION WIDTH 13.4 % (11.5-14.5)
[2018-09-29 06:20] LABS: ANION GAP 8 (5-13); BLOOD UREA NITROGEN 14 mg/dl (7-20); CALCIUM 7.8 mg/dl (8.4-10.2); CARBON DIOXIDE 25 mmol/L (21-31); CHLORIDE 101 mmol/L (97-110); CREATININE 0.47 mg/dl (0.61-1.24); Estimated GFR > 60 mL/min (>60); GLUCOSE 103 mg/dl (70-220); POTASSIUM 3.9 mmol/L (3.5-5.1); SODIUM 134 mmol/L (135-144)
[2018-09-29 06:29] LABS: MAGNESIUM 2.3 mg/dl (1.7-2.5)
[2018-09-29 06:29] LABS: PHOSPHORUS 3.5 mg/dl (2.5-4.9)
[2018-09-29 06:38] LABS: ADD MAN DIFF? YES
[2018-09-29] MEDS: INSULIN ASPART [NOVOLOG] 3 ML PEN SC ×7 (07:50→21:00)
[2018-09-29] MEDS: POLYETHYLENE GLYCOL 17 GM PACKET PO ×2 (08:55→21:15)
[2018-09-29] MEDS: DOXYCYCLINE 100 MG TAB PO ×2 (08:56→21:15)
[2018-09-29] MEDS: LISINOPRIL 10 MG TAB PO ×2 (08:56→21:14)
[2018-09-29] MEDS: ACYCLOVIR 400 MG TAB PO (08:57)
[2018-09-29] MEDS: ALLOPURINOL 300 MG TAB PO (08:57)
[2018-09-29] MEDS: FUROSEMIDE 20 MG TAB PO (08:57)
[2018-09-29] MEDS: FLUCONAZOLE 100 MG TAB PO (08:57)
[2018-09-29] MEDS: FAMOTIDINE 20 MG TAB PO ×2 (08:57→21:14)
[2018-09-29 09:28] LABS: BAND NEUTROPHILS % (M) 4 % (0-4); LYMPHOCYTES #M 0.8 10^3/ul (0.8-2.9); LYMPHOCYTES % (M) 46 % (15-51); MONOCYTES % (M) 2 % (0-11); PLATELET ESTIMATE DECREASED; SEG NEUT #M 0.9 10^3/ul (1.6-7.5); SEGMENTED NEUTROPHILS (M) % 47 % (39-77); SMUDGE%M 5 % (0-0)
[2018-09-29 15:49] LABS: URIC ACID 2.2 mg/dl (3.1-7.9)
[2018-09-29] MEDS: CYTARABINE IV (17:20)
[2018-09-29] MEDS: SOD CHLORIDE 0.9% IV (17:20)
[2018-09-29 20:08] LABS: INR 1.11; PARTIAL THROMBOPLASTIN TIME 28.2 Sec (23.0-35.0); PROTIME 14.4 Sec (11.9-14.9); PT RATIO 1.1
[2018-09-29] MEDS: INSULIN GLARGINE [LANTus] (100 UNITS/ML) SYG SC (21:12)
[2018-09-29] MEDS: DEXAMETHASONE 0.1% 5 ML OPH BOTH EYES (21:18)
[2018-09-30] MEDS: HYDROCODONE/APAP (5/325) TAB PO ×3 (01:20→20:20)
[2018-09-30] MEDS: LEVOFLOXACIN 500 MG TAB PO (05:21)
[2018-09-30 05:25] LABS: WHITE BLOOD COUNT 1.5 10^3/ul (4.8-10.8)
[2018-09-30 05:25] LABS: ABNORMAL IP MESSAGE 1; HEMATOCRIT 24.4 % (42.0-52.0); HEMOGLOBIN 8.3 g/dl (14.0-18.0); MEAN CORPUSCULAR HEMOGLOBIN 31.8 pg (29.0-33.0); MEAN CORPUSCULAR VOLUME 93.5 fl (82.0-101.0); MEAN PLATELET VOLUME 10.2 fl (7.4-10.4); PLATELET COUNT 46 10^3/UL (140-415); POSITIVE DIFF @See below; RED BLOOD COUNT 2.61 10^6/ul (4.70-6.10); RED CELL DISTRIBUTION WIDTH 13.5 % (11.5-14.5)
[2018-09-30 05:27] LABS: ADD MAN DIFF? YES
[2018-09-30 05:50] LABS: MAGNESIUM 2.3 mg/dl (1.7-2.5)
[2018-09-30 05:51] LABS: ANION GAP 8 (5-13); BLOOD UREA NITROGEN 12 mg/dl (7-20); CALCIUM 7.9 mg/dl (8.4-10.2); CARBON DIOXIDE 24 mmol/L (21-31); CHLORIDE 105 mmol/L (97-110); CREATININE 0.47 mg/dl (0.61-1.24); Estimated GFR > 60 mL/min (>60); GLUCOSE 71 mg/dl (70-220); POTASSIUM 3.8 mmol/L (3.5-5.1); SODIUM 137 mmol/L (135-144)
[2018-09-30] MEDS: INSULIN ASPART [NOVOLOG] 3 ML PEN SC ×7 (07:50→21:00)
[2018-09-30] MEDS: FLUCONAZOLE 100 MG TAB PO (08:34)
[2018-09-30] MEDS: DOXYCYCLINE 100 MG TAB PO ×2 (08:34→20:21)
[2018-09-30] MEDS: FAMOTIDINE 20 MG TAB PO ×2 (08:34→20:23)
[2018-09-30] MEDS: ALLOPURINOL 300 MG TAB PO (08:34)
[2018-09-30] MEDS: POLYETHYLENE GLYCOL 17 GM PACKET PO ×2 (08:34→20:24)
[2018-09-30] MEDS: LISINOPRIL 10 MG TAB PO ×2 (08:36→20:23)
[2018-09-30] MEDS: DEXAMETHASONE 0.1% 5 ML OPH BOTH EYES ×2 (08:36→20:40)
[2018-09-30] MEDS: ACYCLOVIR 400 MG TAB PO (08:36)
[2018-09-30] MEDS: FUROSEMIDE 20 MG TAB PO (08:37)
[2018-09-30 12:19] LABS: ANISOCYTOSIS 1+ (0-0); BAND NEUTROPHILS % (M) 4 % (0-4); BURR CELLS 1+ (0-0); LYMPHOCYTES #M 0.9 10^3/ul (0.8-2.9); LYMPHOCYTES % (M) 66 % (15-51); MONOCYTES % (M) 1 % (0-11); PLATELET ESTIMATE SIG DECREASED; POIKILOCYTOSIS 1+ (0-0); SEG NEUT #M 0.4 10^3/ul (1.6-7.5); SEGMENTED NEUTROPHILS (M) % 29 % (39-77); SMUDGE%M 9 % (0-0); TARGET CELLS 1+ (0-0)
[2018-09-30] MEDS: CYTARABINE IV (16:44)
[2018-09-30] MEDS: SOD CHLORIDE 0.9% IV (16:44)
[2018-09-30] MEDS: ONDANSETRON 4 MG INJ IV (17:41)
[2018-09-30] MEDS: INSULIN GLARGINE [LANTus] (100 UNITS/ML) SYG SC (20:00)
[2018-10-01] MEDS: HYDROCODONE/APAP (5/325) TAB PO ×2 (03:02→22:36)
[2018-10-01] MEDS: LEVOFLOXACIN 500 MG TAB PO (05:18)
[2018-10-01 05:49] LABS: WHITE BLOOD COUNT 1.1 10^3/ul (4.8-10.8)
[2018-10-01 05:49] LABS: ABNORMAL IP MESSAGE 1; HEMATOCRIT 25.2 % (42.0-52.0); HEMOGLOBIN 8.8 g/dl (14.0-18.0); MEAN CORPUSCULAR HEMOGLOBIN 31.2 pg (29.0-33.0); MEAN CORPUSCULAR HGB CONC 34.9 g/dl (32.0-37.0); MEAN CORPUSCULAR VOLUME 89.4 fl (82.0-101.0); MEAN PLATELET VOLUME 9.9 fl (7.4-10.4); PLATELET COUNT 37 10^3/UL (140-415); POSITIVE DIFF @See below; RED BLOOD COUNT 2.82 10^6/ul (4.70-6.10); RED CELL DISTRIBUTION WIDTH 13.3 % (11.5-14.5)
[2018-10-01 06:01] LABS: ADD MAN DIFF? YES
[2018-10-01 06:14] LABS: ANION GAP 8 (5-13); BLOOD UREA NITROGEN 10 mg/dl (7-20); CALCIUM 8.4 mg/dl (8.4-10.2); CARBON DIOXIDE 24 mmol/L (21-31); CHLORIDE 104 mmol/L (97-110); CREATININE 0.47 mg/dl (0.61-1.24); Estimated GFR > 60 mL/min (>60); GLUCOSE 76 mg/dl (70-220); POTASSIUM 3.9 mmol/L (3.5-5.1); SODIUM 136 mmol/L (135-144)
[2018-10-01 06:25] LABS: MAGNESIUM 2.2 mg/dl (1.7-2.5)
[2018-10-01 06:25] LABS: PHOSPHORUS 4.2 mg/dl (2.5-4.9)
[2018-10-01] MEDS: INSULIN ASPART [NOVOLOG] 3 ML PEN SC ×7 (07:50→20:20)
[2018-10-01] MEDS: ONDANSETRON 4 MG INJ IV ×2 (08:29→17:12)
[2018-10-01] MEDS: DEXAMETHASONE 0.1% 5 ML OPH BOTH EYES ×2 (08:32→20:22)
[2018-10-01] MEDS: FLUCONAZOLE 100 MG TAB PO (08:32)
[2018-10-01] MEDS: ALLOPURINOL 300 MG TAB PO (08:32)
[2018-10-01] MEDS: DOXYCYCLINE 100 MG TAB PO ×2 (08:32→20:15)
[2018-10-01] MEDS: ACYCLOVIR 400 MG TAB PO (08:33)
[2018-10-01] MEDS: FAMOTIDINE 20 MG TAB PO ×2 (08:33→20:15)
[2018-10-01] MEDS: POLYETHYLENE GLYCOL 17 GM PACKET PO ×2 (08:33→20:22)
[2018-10-01] MEDS: FUROSEMIDE 20 MG TAB PO (08:34)
[2018-10-01] MEDS: LISINOPRIL 10 MG TAB PO (08:34)
[2018-10-01 14:25] LABS: ANISOCYTOSIS 3+ (0-0); BAND NEUTROPHILS % (M) 3 % (0-4); EOSINOPHILS % (M) 1 % (0-7); LYMPHOCYTES #M 0.7 10^3/ul (0.8-2.9); LYMPHOCYTES % (M) 68 % (15-51); METAMYELOCYTES %M 1 % (0-0); MICROCYTOSIS 1+ (0-0); MONOCYTES % (M) 1 % (0-11); PLATELET ESTIMATE DECREASED; POIKILOCYTOSIS 3+ (0-0); POLYCHROMASIA 3+ (0-0); SEG NEUT #M 0.3 10^3/ul (1.6-7.5); SEGMENTED NEUTROPHILS (M) % 28 % (39-77); SMUDGE%M 20 % (0-0)
[2018-10-01] MEDS: SOD CHLORIDE 0.9% IV (15:41)
[2018-10-01] MEDS: CYTARABINE IV (15:41)
[2018-10-01] MEDS: LISINOPRIL 20 MG TAB PO (20:15)
[2018-10-01] MEDS: INSULIN GLARGINE [LANTus] (100 UNITS/ML) SYG SC (20:21)
[2018-10-02] MEDS: LEVOFLOXACIN 500 MG TAB PO (05:16)
[2018-10-02 05:37] LABS: WHITE BLOOD COUNT 0.9 10^3/ul (4.8-10.8)
[2018-10-02 05:37] LABS: ABNORMAL IP MESSAGE 1; HEMATOCRIT 23.8 % (42.0-52.0); HEMOGLOBIN 8.4 g/dl (14.0-18.0); MEAN CORPUSCULAR HEMOGLOBIN 31.8 pg (29.0-33.0); MEAN CORPUSCULAR HGB CONC 35.3 g/dl (32.0-37.0); MEAN CORPUSCULAR VOLUME 90.2 fl (82.0-101.0); POSITIVE DIFF @See below; RED BLOOD COUNT 2.64 10^6/ul (4.70-6.10); RED CELL DISTRIBUTION WIDTH 13.1 % (11.5-14.5)
[2018-10-02 05:49] LABS: ADD MAN DIFF? YES; PLATELET COUNT 25 10^3/UL (140-415)
[2018-10-02 06:04] LABS: ALANINE AMINOTRANSFERASE 72 IU/L (13-69); ALBUMIN 3.2 g/dl (3.3-4.9); ALBUMIN/GLOBULIN RATIO 1.06; ALKALINE PHOSPHATASE 93 IU/L (42-121); ANION GAP 11 (5-13); ASPARTATE AMINO TRANSFERASE 57 IU/L (15-46); BILIRUBIN,INDIRECT 0.8 mg/dl (0-1.1); BILIRUBIN,TOTAL 0.8 mg/dl (0.2-1.3); BLOOD UREA NITROGEN 11 mg/dl (7-20); CALCIUM 8.4 mg/dl (8.4-10.2); CARBON DIOXIDE 25 mmol/L (21-31); CHLORIDE 102 mmol/L (97-110); CREATININE 0.51 mg/dl (0.61-1.24); Estimated GFR > 60 mL/min (>60); GLUCOSE 84 mg/dl (70-220); LACTATE DEHYDROGENASE 445 IU/L (313-618); SODIUM 138 mmol/L (135-144); TOTAL PROTEIN 6.2 g/dl (6.1-8.1)
[2018-10-02 06:08] LABS: PHOSPHORUS 4.1 mg/dl (2.5-4.9)
[2018-10-02 06:08] LABS: MAGNESIUM 2.1 mg/dl (1.7-2.5)
[2018-10-02] MEDS: INSULIN ASPART [NOVOLOG] 3 ML PEN SC ×7 (07:50→20:25)
[2018-10-02 08:16] LABS: BAND NEUTROPHILS % (M) 1 % (0-4); GIANT THROMBO% (M) 1 % (0-0); LYMPHOCYTES #M 0.6 10^3/ul (0.8-2.9); LYMPHOCYTES % (M) 76 % (15-51); PLATELET ESTIMATE SIG DECREASED; SEG NEUT #M 0.2 10^3/ul (1.6-7.5); SEGMENTED NEUTROPHILS (M) % 23 % (39-77); SMUDGE%M 12 % (0-0)
[2018-10-02] MEDS: FLUCONAZOLE 100 MG TAB PO (08:25)
[2018-10-02] MEDS: DOXYCYCLINE 100 MG TAB PO ×2 (08:25→20:16)
[2018-10-02] MEDS: FAMOTIDINE 20 MG TAB PO ×2 (08:25→20:16)
[2018-10-02] MEDS: LISINOPRIL 20 MG TAB PO ×2 (08:25→20:16)
[2018-10-02] MEDS: ACYCLOVIR 400 MG TAB PO (08:25)
[2018-10-02] MEDS: ALLOPURINOL 300 MG TAB PO (08:26)
[2018-10-02] MEDS: FUROSEMIDE 20 MG TAB PO (08:26)
[2018-10-02] MEDS: POLYETHYLENE GLYCOL 17 GM PACKET PO ×2 (08:26→20:24)
[2018-10-02] MEDS: DEXAMETHASONE 0.1% 5 ML OPH BOTH EYES ×2 (10:54→20:17)
[2018-10-02] MEDS: ONDANSETRON 4 MG INJ IV (12:46)
[2018-10-02] MEDS: INSULIN GLARGINE [LANTus] (100 UNITS/ML) SYG SC (20:20)
[2018-10-03 05:02] LABS: ABNORMAL IP MESSAGE 1; HEMATOCRIT 22.5 % (42.0-52.0); HEMOGLOBIN 7.9 g/dl (14.0-18.0); MEAN CORPUSCULAR HEMOGLOBIN 31.5 pg (29.0-33.0); MEAN CORPUSCULAR HGB CONC 35.1 g/dl (32.0-37.0); MEAN CORPUSCULAR VOLUME 89.6 fl (82.0-101.0); MEAN PLATELET VOLUME 11.2 fl (7.4-10.4); POSITIVE DIFF @See below; RED BLOOD COUNT 2.51 10^6/ul (4.70-6.10); RED CELL DISTRIBUTION WIDTH 12.9 % (11.5-14.5)
[2018-10-03 05:02] LABS: WHITE BLOOD COUNT 0.6 10^3/ul (4.8-10.8)
[2018-10-03 05:20] LABS: ADD MAN DIFF? YES; PLATELET COUNT 18 10^3/UL (140-415)
[2018-10-03 05:22] LABS: PHOSPHORUS 4.4 mg/dl (2.5-4.9)
[2018-10-03 05:36] LABS: ALANINE AMINOTRANSFERASE 54 IU/L (13-69); ALBUMIN 3.2 g/dl (3.3-4.9); ALBUMIN/GLOBULIN RATIO 0.94; ALKALINE PHOSPHATASE 87 IU/L (42-121); ANION GAP 8 (5-13); ASPARTATE AMINO TRANSFERASE 16 IU/L (15-46); BILIRUBIN,INDIRECT 0.7 mg/dl (0-1.1); BILIRUBIN,TOTAL 0.7 mg/dl (0.2-1.3); BLOOD UREA NITROGEN 9 mg/dl (7-20); CALCIUM 8.3 mg/dl (8.4-10.2); CARBON DIOXIDE 25 mmol/L (21-31); CHLORIDE 102 mmol/L (97-110); CREATININE 0.52 mg/dl (0.61-1.24); Estimated GFR > 60 mL/min (>60); GLUCOSE 105 mg/dl (70-220); LACTATE DEHYDROGENASE 304 IU/L (313-618); POTASSIUM 4.2 mmol/L (3.5-5.1); SODIUM 135 mmol/L (135-144); TOTAL PROTEIN 6.6 g/dl (6.1-8.1); URIC ACID 1.9 mg/dl (3.1-7.9)
[2018-10-03] MEDS: LEVOFLOXACIN 500 MG TAB PO (05:47)
[2018-10-03 08:00] LABS: ANISOCYTOSIS 1+ (0-0); BASOPHILS % (M) 1 % (0-2); LYMPHOCYTES #M 0.5 10^3/ul (0.8-2.9); LYMPHOCYTES % (M) 85 % (15-51); METAMYELOCYTES %M 1 % (0-0); MONOCYTES % (M) 2 % (0-11); OVALOCYTES 1+ (0-0); PLATELET ESTIMATE SIG DECREASED; SEGMENTED NEUTROPHILS (M) % 11 % (39-77); SMUDGE%M 4 % (0-0)
[2018-10-03] MEDS: POLYETHYLENE GLYCOL 17 GM PACKET PO ×2 (09:00→21:00)
[2018-10-03] MEDS: INSULIN ASPART [NOVOLOG] 3 ML PEN SC ×7 (09:12→20:51)
[2018-10-03] MEDS: ALLOPURINOL 300 MG TAB PO (09:13)
[2018-10-03] MEDS: FLUCONAZOLE 100 MG TAB PO (09:13)
[2018-10-03] MEDS: ACYCLOVIR 400 MG TAB PO (09:13)
[2018-10-03] MEDS: FAMOTIDINE 20 MG TAB PO ×2 (09:13→20:46)
[2018-10-03] MEDS: DEXAMETHASONE 0.1% 5 ML OPH BOTH EYES ×2 (09:14→20:47)
[2018-10-03] MEDS: FUROSEMIDE 20 MG TAB PO (09:14)
[2018-10-03] MEDS: LISINOPRIL 20 MG TAB PO ×2 (09:51→20:46)
[2018-10-03] MEDS: DOXYCYCLINE 100 MG TAB PO ×2 (09:51→20:46)
[2018-10-03 13:25] LABS: WHITE BLOOD COUNT 0.7 10^3/ul (4.8-10.8)
[2018-10-03 13:25] LABS: ABNORMAL IP MESSAGE 1; HEMATOCRIT 22.7 % (42.0-52.0); HEMOGLOBIN 7.9 g/dl (14.0-18.0); LYMPHOCYTES # 0.6 10^3/ul (0.8-2.9); MEAN CORPUSCULAR HEMOGLOBIN 31.5 pg (29.0-33.0); MEAN CORPUSCULAR HGB CONC 34.8 g/dl (32.0-37.0); MEAN CORPUSCULAR VOLUME 90.4 fl (82.0-101.0); MEAN PLATELET VOLUME 9.7 fl (7.4-10.4); MONOCYTES % 1.5 % (0.0-11.0); NEUTROPHIL # 0.1 10^3/ul (1.6-7.5); NEUTROPHILS % 13.9 % (39.0-77.0); POSITIVE DIFF @See below; RED BLOOD COUNT 2.51 10^6/ul (4.70-6.10); RED CELL DISTRIBUTION WIDTH 13.1 % (11.5-14.5)
[2018-10-03 13:48] LABS: LYMPHOCYTES % 84.6 % (15.0-51.0); PLATELET COUNT 14 10^3/UL (140-415)
[2018-10-03 13:54] LABS: ADD MAN DIFF? NO
[2018-10-03] MEDS: INSULIN GLARGINE [LANTus] (100 UNITS/ML) SYG SC (20:49)
[2018-10-04] MEDS: ACETAMINOPHEN 325 MG TAB PO ×2 (02:20→11:28)
[2018-10-04 05:23] LABS: WHITE BLOOD COUNT 0.5 10^3/ul (4.8-10.8)
[2018-10-04 05:23] LABS: ABNORMAL IP MESSAGE 1; HEMATOCRIT 21.8 % (42.0-52.0); HEMOGLOBIN 7.7 g/dl (14.0-18.0); MEAN CORPUSCULAR HEMOGLOBIN 31.3 pg (29.0-33.0); MEAN CORPUSCULAR HGB CONC 35.3 g/dl (32.0-37.0); MEAN CORPUSCULAR VOLUME 88.6 fl (82.0-101.0); MEAN PLATELET VOLUME 10.7 fl (7.4-10.4); POSITIVE DIFF @See below; RED BLOOD COUNT 2.46 10^6/ul (4.70-6.10); RED CELL DISTRIBUTION WIDTH 12.7 % (11.5-14.5)
[2018-10-04] MEDS: NACL 0.9% 3 ML SYG IV (05:29)
[2018-10-04] MEDS: LEVOFLOXACIN 500 MG TAB PO (05:29)
[2018-10-04 06:04] LABS: PHOSPHORUS 4.3 mg/dl (2.5-4.9)
[2018-10-04 06:25] LABS: ADD MAN DIFF? YES; PLATELET COUNT 11 10^3/UL (140-415)
[2018-10-04 06:34] LABS: ALANINE AMINOTRANSFERASE 41 IU/L (13-69); ALBUMIN 3.3 g/dl (3.3-4.9); ALBUMIN/GLOBULIN RATIO 1.06; ALKALINE PHOSPHATASE 71 IU/L (42-121); ANION GAP 10 (5-13); ASPARTATE AMINO TRANSFERASE 13 IU/L (15-46); BILIRUBIN,INDIRECT 0.7 mg/dl (0-1.1); BILIRUBIN,TOTAL 0.7 mg/dl (0.2-1.3); BLOOD UREA NITROGEN 11 mg/dl (7-20); CALCIUM 8.4 mg/dl (8.4-10.2); CARBON DIOXIDE 25 mmol/L (21-31); CHLORIDE 99 mmol/L (97-110); CREATININE 0.53 mg/dl (0.61-1.24); Estimated GFR > 60 mL/min (>60); GLUCOSE 97 mg/dl (70-220); LACTATE DEHYDROGENASE 287 IU/L (313-618); POTASSIUM 4.1 mmol/L (3.5-5.1); SODIUM 134 mmol/L (135-144); TOTAL PROTEIN 6.4 g/dl (6.1-8.1); URIC ACID 1.9 mg/dl (3.1-7.9)
[2018-10-04] MEDS: INSULIN ASPART [NOVOLOG] 3 ML PEN SC ×7 (07:50→20:18)
[2018-10-04] MEDS: ACYCLOVIR 400 MG TAB PO (08:39)
[2018-10-04] MEDS: ALLOPURINOL 300 MG TAB PO (08:39)
[2018-10-04] MEDS: FAMOTIDINE 20 MG TAB PO ×2 (08:39→20:20)
[2018-10-04] MEDS: DOXYCYCLINE 100 MG TAB PO ×2 (08:39→20:19)
[2018-10-04] MEDS: LISINOPRIL 20 MG TAB PO ×2 (08:40→20:19)
[2018-10-04] MEDS: DEXAMETHASONE 0.1% 5 ML OPH BOTH EYES ×2 (08:40→20:21)
[2018-10-04] MEDS: FLUCONAZOLE 100 MG TAB PO (08:40)
[2018-10-04] MEDS: FUROSEMIDE 20 MG TAB PO (08:41)
[2018-10-04] MEDS: POLYETHYLENE GLYCOL 17 GM PACKET PO ×2 (08:43→20:29)
[2018-10-04 09:49] LABS: BAND NEUTROPHILS % (M) 1 % (0-4); LYMPHOCYTES #M 0.4 10^3/ul (0.8-2.9); LYMPHOCYTES % (M) 97 % (15-51); OVALOCYTES 1+ (0-0); PLATELET ESTIMATE SIG DECREASED; SEGMENTED NEUTROPHILS (M) % 2 % (39-77); SMUDGE%M 6 % (0-0)
[2018-10-04 10:18] LABS: IMMEDIATE SPIN CROSSMATCH 1 2
[2018-10-04 15:22] LABS: TYPE AND SCREEN 1
[2018-10-04] MEDS: INSULIN GLARGINE [LANTus] (100 UNITS/ML) SYG SC (20:18)
[2018-10-05 04:56] LABS: ADD MAN DIFF? NO
[2018-10-05 05:01] LABS: ABNORMAL IP MESSAGE 1; HEMATOCRIT 24.2 % (42.0-52.0); HEMOGLOBIN 8.8 g/dl (14.0-18.0); LYMPHOCYTES # 0.4 10^3/ul (0.8-2.9); MEAN CORPUSCULAR HEMOGLOBIN 31.5 pg (29.0-33.0); MEAN CORPUSCULAR HGB CONC 36.4 g/dl (32.0-37.0); MEAN CORPUSCULAR VOLUME 86.7 fl (82.0-101.0); MEAN PLATELET VOLUME 10.5 fl (7.4-10.4); NEUTROPHILS % 7.9 % (39.0-77.0); PLATELET COUNT 40 10^3/UL (140-415); POSITIVE DIFF @See below; RED BLOOD COUNT 2.79 10^6/ul (4.70-6.10); RED CELL DISTRIBUTION WIDTH 12.6 % (11.5-14.5)
[2018-10-05 05:01] LABS: WHITE BLOOD COUNT 0.4 10^3/ul (4.8-10.8)
[2018-10-05 05:12] LABS: LYMPHOCYTES % 92.1 % (15.0-51.0)
[2018-10-05 05:17] LABS: ALANINE AMINOTRANSFERASE 32 IU/L (13-69); ALBUMIN 3.4 g/dl (3.3-4.9); ALKALINE PHOSPHATASE 73 IU/L (42-121); ANION GAP 10 (5-13); ASPARTATE AMINO TRANSFERASE 12 IU/L (15-46); BILIRUBIN,INDIRECT 0.8 mg/dl (0-1.1); BILIRUBIN,TOTAL 0.8 mg/dl (0.2-1.3); BLOOD UREA NITROGEN 11 mg/dl (7-20); CALCIUM 8.2 mg/dl (8.4-10.2); CARBON DIOXIDE 24 mmol/L (21-31); CHLORIDE 100 mmol/L (97-110); CREATININE 0.51 mg/dl (0.61-1.24); Estimated GFR > 60 mL/min (>60); GLUCOSE 81 mg/dl (70-220); LACTATE DEHYDROGENASE 321 IU/L (313-618); SODIUM 134 mmol/L (135-144); TOTAL PROTEIN 6.8 g/dl (6.1-8.1); URIC ACID 1.6 mg/dl (3.1-7.9)
[2018-10-05 05:31] LABS: PHOSPHORUS 4.3 mg/dl (2.5-4.9)
[2018-10-05] MEDS: LEVOFLOXACIN 500 MG TAB PO (05:40)
[2018-10-05 07:01] LABS: ANISOCYTOSIS 1+ (0-0); LYMPHOCYTES #M 0.3 10^3/ul (0.8-2.9); LYMPHOCYTES % (M) 97 % (15-51); MONOCYTES % (M) 1 % (0-11); PLATELET ESTIMATE SIG DECREASED; POIKILOCYTOSIS 1+ (0-0); SEGMENTED NEUTROPHILS (M) % 2 % (39-77); SMUDGE%M 2 % (0-0)
[2018-10-05] MEDS: INSULIN ASPART [NOVOLOG] 3 ML PEN SC ×7 (07:50→20:33)
[2018-10-05] MEDS: DOXYCYCLINE 100 MG TAB PO ×2 (08:35→20:26)
[2018-10-05] MEDS: FAMOTIDINE 20 MG TAB PO ×2 (08:35→20:27)
[2018-10-05] MEDS: ALLOPURINOL 300 MG TAB PO (08:35)
[2018-10-05] MEDS: ACYCLOVIR 400 MG TAB PO (08:35)
[2018-10-05] MEDS: FLUCONAZOLE 100 MG TAB PO (08:35)
[2018-10-05] MEDS: FUROSEMIDE 20 MG TAB PO (08:36)
[2018-10-05] MEDS: LISINOPRIL 20 MG TAB PO ×2 (08:37→20:27)
[2018-10-05] MEDS: DEXAMETHASONE 0.1% 5 ML OPH BOTH EYES ×3 (08:37→20:49)
[2018-10-05] MEDS: POLYETHYLENE GLYCOL 17 GM PACKET PO ×2 (08:38→21:00)
[2018-10-05] MEDS: ONDANSETRON 4 MG INJ IV ×2 (11:09→17:54)
[2018-10-05] MEDS: AL HYDROX/MG HYDROX/SIMETH 30 ML CUP PO (13:41)
[2018-10-05] MEDS: ACETAMINOPHEN 325 MG TAB PO (20:26)
[2018-10-05] MEDS: INSULIN GLARGINE [LANTus] (100 UNITS/ML) SYG SC (20:33)
[2018-10-05] MEDS ORDERED: L ACIDOPHIL/B LACTIS/B LONGUM CAPSULE PO (21:00)
[2018-10-06] MEDS: ACCU-CHEK XX (02:28)
[2018-10-06] MEDS: HYDROCODONE/APAP (5/325) TAB PO (03:07)
[2018-10-06 05:16] LABS: ABNORMAL IP MESSAGE 1; HEMATOCRIT 23.4 % (42.0-52.0); HEMOGLOBIN 8.5 g/dl (14.0-18.0); MEAN CORPUSCULAR HEMOGLOBIN 32.2 pg (29.0-33.0); MEAN CORPUSCULAR HGB CONC 36.3 g/dl (32.0-37.0); MEAN CORPUSCULAR VOLUME 88.6 fl (82.0-101.0); MEAN PLATELET VOLUME 10.3 fl (7.4-10.4); POSITIVE DIFF @See below; RED BLOOD COUNT 2.64 10^6/ul (4.70-6.10); RED CELL DISTRIBUTION WIDTH 12.5 % (11.5-14.5)
[2018-10-06 05:16] LABS: WHITE BLOOD COUNT 0.2 10^3/ul (4.8-10.8)
[2018-10-06 05:28] LABS: MAGNESIUM 1.8 mg/dl (1.7-2.5)
[2018-10-06 05:28] LABS: PHOSPHORUS 4.6 mg/dl (2.5-4.9)
[2018-10-06 05:30] LABS: ALANINE AMINOTRANSFERASE 32 IU/L (13-69); ALBUMIN 3.3 g/dl (3.3-4.9); ALKALINE PHOSPHATASE 71 IU/L (42-121); ANION GAP 10 (5-13); ASPARTATE AMINO TRANSFERASE 12 IU/L (15-46); BILIRUBIN,INDIRECT 0.7 mg/dl (0-1.1); BILIRUBIN,TOTAL 0.7 mg/dl (0.2-1.3); BLOOD UREA NITROGEN 11 mg/dl (7-20); CALCIUM 8.3 mg/dl (8.4-10.2); CARBON DIOXIDE 23 mmol/L (21-31); CHLORIDE 96 mmol/L (97-110); CREATININE 0.56 mg/dl (0.61-1.24); Estimated GFR > 60 mL/min (>60); GLUCOSE 134 mg/dl (70-220); LACTATE DEHYDROGENASE 309 IU/L (313-618); POTASSIUM 4.1 mmol/L (3.5-5.1); SODIUM 129 mmol/L (135-144); TOTAL PROTEIN 6.6 g/dl (6.1-8.1); URIC ACID 1.7 mg/dl (3.1-7.9)
[2018-10-06 05:36] LABS: PLATELET COUNT 24 10^3/UL (140-415)
[2018-10-06 05:37] LABS: ADD MAN DIFF? YES
[2018-10-06] MEDS: LEVOFLOXACIN 500 MG TAB PO (06:16)
[2018-10-06] MEDS: POLYETHYLENE GLYCOL 17 GM PACKET PO (09:00)
[2018-10-06] MEDS: ACETAMINOPHEN 325 MG TAB PO (09:05)
[2018-10-06] MEDS: DOXYCYCLINE 100 MG TAB PO (09:06)
[2018-10-06] MEDS: FLUCONAZOLE 100 MG TAB PO (09:06)
[2018-10-06] MEDS: ALLOPURINOL 300 MG TAB PO (09:06)
[2018-10-06] MEDS: FAMOTIDINE 20 MG TAB PO (09:06)
[2018-10-06] MEDS: ACYCLOVIR 400 MG TAB PO (09:06)
[2018-10-06] MEDS: FUROSEMIDE 20 MG TAB PO (09:07)
[2018-10-06] MEDS: LISINOPRIL 20 MG TAB PO ×2 (09:07→20:28)
[2018-10-06] MEDS: DEXAMETHASONE 0.1% 5 ML OPH BOTH EYES (09:08)
[2018-10-06] MEDS: INSULIN ASPART [NOVOLOG] 3 ML PEN SC ×7 (09:09→20:37)
[2018-10-06 14:30] LABS: LYMPHOCYTES #M 0.1 10^3/ul (0.8-2.9); LYMPHOCYTES % (M) 93 % (15-51); MONOCYTES % (M) 8 % (0-11); PLATELET ESTIMATE SIG DECREASED; POIKILOCYTOSIS 2+ (0-0); POLYCHROMASIA 1+ (0-0); SMUDGE%M 13 % (0-0)
[2018-10-06] MEDS ORDERED: VANCOMYCIN IV PER PHARMACY XX (16:00)
[2018-10-06] MEDS: MEROPENEM 500MG/50 ML (PMX) 50 ML IVPB ×2 (18:02→23:02)
[2018-10-06] MEDS: VANCOMYCIN HCL 1.5 GM in SOD CHLORIDE 0.9% 250 ML IVPB (18:51)
[2018-10-06] MEDS: MAGNESIUM OXIDE 400 MG TAB PO (20:27)
[2018-10-06] MEDS: INSULIN GLARGINE [LANTus] (100 UNITS/ML) SYG SC (20:36)
[2018-10-07] MEDS: VANCOMYCIN HCL 1.25 GM in SOD CHLORIDE 0.9% 250 ML IVPB ×3 (01:24→17:19)
[2018-10-07 05:03] LABS: WHITE BLOOD COUNT 0.5 10^3/ul (4.8-10.8)
[2018-10-07 05:03] LABS: ABNORMAL IP MESSAGE 1; HEMATOCRIT 23.6 % (42.0-52.0); HEMOGLOBIN 8.5 g/dl (14.0-18.0); MEAN CORPUSCULAR HEMOGLOBIN 31.3 pg (29.0-33.0); MEAN CORPUSCULAR VOLUME 86.8 fl (82.0-101.0); POSITIVE DIFF @See below; RED BLOOD COUNT 2.72 10^6/ul (4.70-6.10); RED CELL DISTRIBUTION WIDTH 12.5 % (11.5-14.5)
[2018-10-07 05:13] LABS: ADD MAN DIFF? YES
[2018-10-07 05:16] LABS: PLATELET COUNT 19 10^3/UL (140-415)
[2018-10-07 05:26] LABS: ALANINE AMINOTRANSFERASE 86 IU/L (13-69); ALBUMIN 3.2 g/dl (3.3-4.9); ALBUMIN/GLOBULIN RATIO 0.96; ALKALINE PHOSPHATASE 109 IU/L (42-121); ANION GAP 12 (5-13); ASPARTATE AMINO TRANSFERASE 24 IU/L (15-46); BILIRUBIN,INDIRECT 0.5 mg/dl (0-1.1); BILIRUBIN,TOTAL 0.5 mg/dl (0.2-1.3); BLOOD UREA NITROGEN 12 mg/dl (7-20); CALCIUM 8.2 mg/dl (8.4-10.2); CARBON DIOXIDE 23 mmol/L (21-31); CHLORIDE 98 mmol/L (97-110); CREATININE 0.58 mg/dl (0.61-1.24); Estimated GFR > 60 mL/min (>60); GLUCOSE 123 mg/dl (70-220); LACTATE DEHYDROGENASE 300 IU/L (313-618); SODIUM 133 mmol/L (135-144); TOTAL PROTEIN 6.5 g/dl (6.1-8.1); URIC ACID 1.6 mg/dl (3.1-7.9)
[2018-10-07] MEDS: LEVOFLOXACIN 500 MG TAB PO (05:44)
[2018-10-07] MEDS: MEROPENEM 500MG/50 ML (PMX) 50 ML IVPB ×3 (05:44→21:52)
[2018-10-07 07:34] LABS: ANISOCYTOSIS 1+ (0-0); LYMPHOCYTES #M 0.4 10^3/ul (0.8-2.9); LYMPHOCYTES % (M) 99 % (15-51); MICROCYTOSIS 1+ (0-0); MONOCYTES % (M) 1 % (0-11); PLATELET ESTIMATE SIG DECREASED; POIKILOCYTOSIS 1+ (0-0); POLYCHROMASIA 3+ (0-0); SMUDGE%M 7 % (0-0)
[2018-10-07] MEDS: INSULIN ASPART [NOVOLOG] 3 ML PEN SC ×7 (07:50→20:46)
[2018-10-07] MEDS: DEXAMETHASONE 0.1% 5 ML OPH BOTH EYES ×2 (08:28→20:40)
[2018-10-07] MEDS: FUROSEMIDE 20 MG TAB PO (08:29)
[2018-10-07] MEDS: FLUCONAZOLE 100 MG TAB PO (08:29)
[2018-10-07] MEDS: MAGNESIUM OXIDE 400 MG TAB PO ×2 (08:29→20:41)
[2018-10-07] MEDS: ALLOPURINOL 300 MG TAB PO (08:29)
[2018-10-07] MEDS: ACYCLOVIR 400 MG TAB PO (08:30)
[2018-10-07] MEDS: LISINOPRIL 20 MG TAB PO ×2 (08:30→20:41)
[2018-10-07] MEDS: FAMOTIDINE 20 MG TAB PO (08:31)
[2018-10-07] MEDS: POLYETHYLENE GLYCOL 17 GM PACKET PO (08:31)
[2018-10-07 16:35] LABS: VANCOMYCIN,TROUGH 9.1 ug/ml (10.0-20.0)
[2018-10-07] MEDS: INSULIN GLARGINE [LANTus] (100 UNITS/ML) SYG SC (20:44)
[2018-10-08] MEDS: VANCOMYCIN HCL 1.5 GM in SOD CHLORIDE 0.9% 250 ML IVPB ×3 (00:56→17:50)
[2018-10-08 05:25] LABS: ABNORMAL IP MESSAGE 1; HEMATOCRIT 21.4 % (42.0-52.0); HEMOGLOBIN 7.6 g/dl (14.0-18.0); MEAN CORPUSCULAR HEMOGLOBIN 30.8 pg (29.0-33.0); MEAN CORPUSCULAR HGB CONC 35.5 g/dl (32.0-37.0); MEAN CORPUSCULAR VOLUME 86.6 fl (82.0-101.0); POSITIVE DIFF @See below; RED BLOOD COUNT 2.47 10^6/ul (4.70-6.10); RED CELL DISTRIBUTION WIDTH 12.3 % (11.5-14.5)
[2018-10-08 05:25] LABS: WHITE BLOOD COUNT 0.3 10^3/ul (4.8-10.8)
[2018-10-08 05:36] LABS: ADD MAN DIFF? YES
[2018-10-08 05:37] LABS: PLATELET COUNT 12 10^3/UL (140-415)
[2018-10-08 05:48] LABS: ALANINE AMINOTRANSFERASE 65 IU/L (13-69); ALBUMIN 2.9 g/dl (3.3-4.9); ALBUMIN/GLOBULIN RATIO 0.87; ALKALINE PHOSPHATASE 97 IU/L (42-121); ANION GAP 8 (5-13); ASPARTATE AMINO TRANSFERASE 15 IU/L (15-46); BILIRUBIN,INDIRECT 0.5 mg/dl (0-1.1); BILIRUBIN,TOTAL 0.5 mg/dl (0.2-1.3); BLOOD UREA NITROGEN 9 mg/dl (7-20); CALCIUM 7.6 mg/dl (8.4-10.2); CARBON DIOXIDE 23 mmol/L (21-31); CHLORIDE 103 mmol/L (97-110); Estimated GFR > 60 mL/min (>60); GLUCOSE 89 mg/dl (70-220); LACTATE DEHYDROGENASE 262 IU/L (313-618); POTASSIUM 3.7 mmol/L (3.5-5.1); SODIUM 134 mmol/L (135-144); TOTAL PROTEIN 6.2 g/dl (6.1-8.1); URIC ACID 1.8 mg/dl (3.1-7.9)
[2018-10-08] MEDS: MEROPENEM 500MG/50 ML (PMX) 50 ML IVPB ×3 (06:00→22:45)
[2018-10-08] MEDS: LEVOFLOXACIN 500 MG TAB PO (06:00)
[2018-10-08] MEDS: INSULIN ASPART [NOVOLOG] 3 ML PEN SC ×7 (07:50→21:37)
[2018-10-08 08:45] LABS: ANISOCYTOSIS 1+ (0-0); BURR CELLS 1+ (0-0); LYMPHOCYTES #M 0.3 10^3/ul (0.8-2.9); LYMPHOCYTES % (M) 100 % (15-51); MICROCYTOSIS 1+ (0-0); MONOCYTES % (M) 1 % (0-11); PLATELET ESTIMATE SIG DECREASED; POIKILOCYTOSIS 1+ (0-0); POLYCHROMASIA 1+ (0-0); SMUDGE%M 10 % (0-0)
[2018-10-08] MEDS: MAGNESIUM OXIDE 400 MG TAB PO ×2 (09:11→21:32)
[2018-10-08] MEDS: FAMOTIDINE 20 MG TAB PO (09:11)
[2018-10-08] MEDS: ACYCLOVIR 400 MG TAB PO (09:13)
[2018-10-08] MEDS: FUROSEMIDE 20 MG TAB PO (09:13)
[2018-10-08] MEDS: FLUCONAZOLE 100 MG TAB PO (09:13)
[2018-10-08] MEDS: POLYETHYLENE GLYCOL 17 GM PACKET PO (09:14)
[2018-10-08] MEDS: LISINOPRIL 20 MG TAB PO ×2 (09:14→21:33)
[2018-10-08] MEDS: DEXAMETHASONE 0.1% 5 ML OPH BOTH EYES ×2 (09:15→21:33)
[2018-10-08 15:15] LABS: PLATELET COUNT 7 10^3/UL (140-415)
[2018-10-08] MEDS: INSULIN GLARGINE [LANTus] (100 UNITS/ML) SYG SC (21:37)
[2018-10-08 21:38] LABS: IMMEDIATE SPIN CROSSMATCH 1 2
[2018-10-08 23:49] LABS: VANCOMYCIN,TROUGH 17.2 ug/ml (10.0-20.0)
[2018-10-09] MEDS: VANCOMYCIN HCL 1.5 GM in SOD CHLORIDE 0.9% 250 ML IVPB ×2 (00:52→09:02)
[2018-10-09] MEDS: LEVOFLOXACIN 500 MG TAB PO (05:09)
[2018-10-09] MEDS: MEROPENEM 500MG/50 ML (PMX) 50 ML IVPB ×3 (05:15→21:52)
[2018-10-09 05:26] LABS: ABNORMAL IP MESSAGE 1; HEMOGLOBIN 7.2 g/dl (14.0-18.0); MEAN CORPUSCULAR HEMOGLOBIN 31.4 pg (29.0-33.0); MEAN CORPUSCULAR VOLUME 87.3 fl (82.0-101.0); MEAN PLATELET VOLUME 8.9 fl (7.4-10.4); POSITIVE DIFF @See below; RED BLOOD COUNT 2.29 10^6/ul (4.70-6.10); RED CELL DISTRIBUTION WIDTH 12.1 % (11.5-14.5)
[2018-10-09 05:33] LABS: WHITE BLOOD COUNT 0.4 10^3/ul (4.8-10.8)
[2018-10-09 05:33] LABS: ADD MAN DIFF? YES
[2018-10-09 05:36] LABS: PLATELET COUNT 25 10^3/UL (140-415)
[2018-10-09 05:57] LABS: ALANINE AMINOTRANSFERASE 53 IU/L (13-69); ALBUMIN 2.9 g/dl (3.3-4.9); ALKALINE PHOSPHATASE 82 IU/L (42-121); ANION GAP 7 (5-13); ASPARTATE AMINO TRANSFERASE 15 IU/L (15-46); BILIRUBIN,INDIRECT 0.5 mg/dl (0-1.1); BILIRUBIN,TOTAL 0.5 mg/dl (0.2-1.3); BLOOD UREA NITROGEN 7 mg/dl (7-20); CALCIUM 7.8 mg/dl (8.4-10.2); CARBON DIOXIDE 23 mmol/L (21-31); CHLORIDE 104 mmol/L (97-110); CREATININE 0.46 mg/dl (0.61-1.24); Estimated GFR > 60 mL/min (>60); GLUCOSE 66 mg/dl (70-220); LACTATE DEHYDROGENASE 297 IU/L (313-618); POTASSIUM 3.5 mmol/L (3.5-5.1); SODIUM 134 mmol/L (135-144); TOTAL PROTEIN 6.1 g/dl (6.1-8.1); URIC ACID 1.7 mg/dl (3.1-7.9)
[2018-10-09] MEDS: INSULIN ASPART [NOVOLOG] 3 ML PEN SC ×7 (07:50→21:00)
[2018-10-09] MEDS: LOPERAMIDE 2 MG CAP PO (09:03)
[2018-10-09] MEDS: FUROSEMIDE 20 MG TAB PO (09:03)
[2018-10-09] MEDS: ACYCLOVIR 400 MG TAB PO (09:03)
[2018-10-09] MEDS: MAGNESIUM OXIDE 400 MG TAB PO ×2 (09:03→21:03)
[2018-10-09] MEDS: FLUCONAZOLE 100 MG TAB PO (09:04)
[2018-10-09] MEDS: LISINOPRIL 20 MG TAB PO ×2 (09:04→21:04)
[2018-10-09] MEDS: FAMOTIDINE 20 MG TAB PO (09:04)
[2018-10-09] MEDS: DEXAMETHASONE 0.1% 5 ML OPH BOTH EYES ×2 (09:05→21:03)
[2018-10-09 09:32] LABS: ANISOCYTOSIS 1+ (0-0); BAND NEUTROPHILS % (M) 3 % (0-4); LYMPHOCYTES #M 0.3 10^3/ul (0.8-2.9); LYMPHOCYTES % (M) 97 % (15-51); PLATELET ESTIMATE SIG DECREASED; POIKILOCYTOSIS 1+ (0-0); POLYCHROMASIA 1+ (0-0); RBC MORPHOLOGY COMMENT @See below; SMUDGE%M 8 % (0-0); WBC MORPHOLOGY COMMENT @See below
[2018-10-09] MEDS: VANCOMYCIN HCL 1.25 GM in SOD CHLORIDE 0.9% 250 ML IVPB (16:51)
[2018-10-09] MEDS: ACETAMINOPHEN 325 MG TAB PO (19:44)
[2018-10-09] MEDS: INSULIN GLARGINE [LANTus] (100 UNITS/ML) SYG SC (21:13)
[2018-10-10] MEDS: VANCOMYCIN HCL 1.25 GM in SOD CHLORIDE 0.9% 250 ML IVPB ×3 (01:10→19:31)
[2018-10-10 05:17] LABS: ABNORMAL IP MESSAGE 1; HEMOGLOBIN 7.2 g/dl (14.0-18.0); MEAN CORPUSCULAR HEMOGLOBIN 31.3 pg (29.0-33.0); MEAN PLATELET VOLUME 9.8 fl (7.4-10.4); POSITIVE DIFF @See below; RED CELL DISTRIBUTION WIDTH 12.1 % (11.5-14.5)
[2018-10-10 05:17] LABS: WHITE BLOOD COUNT 0.3 10^3/ul (4.8-10.8)
[2018-10-10 05:35] LABS: ALANINE AMINOTRANSFERASE 49 IU/L (13-69); ALBUMIN 2.8 g/dl (3.3-4.9); ALBUMIN/GLOBULIN RATIO 0.87; ALKALINE PHOSPHATASE 79 IU/L (42-121); ANION GAP 9 (5-13); ASPARTATE AMINO TRANSFERASE 12 IU/L (15-46); BILIRUBIN,INDIRECT 0.5 mg/dl (0-1.1); BILIRUBIN,TOTAL 0.5 mg/dl (0.2-1.3); BLOOD UREA NITROGEN 8 mg/dl (7-20); CALCIUM 7.8 mg/dl (8.4-10.2); CARBON DIOXIDE 22 mmol/L (21-31); CHLORIDE 105 mmol/L (97-110); CREATININE 0.49 mg/dl (0.61-1.24); Estimated GFR > 60 mL/min (>60); GLUCOSE 101 mg/dl (70-220); LACTATE DEHYDROGENASE 263 IU/L (313-618); POTASSIUM 3.5 mmol/L (3.5-5.1); SODIUM 136 mmol/L (135-144); URIC ACID 1.9 mg/dl (3.1-7.9)
[2018-10-10] MEDS: MEROPENEM 500MG/50 ML (PMX) 50 ML IVPB ×3 (06:21→22:43)
[2018-10-10] MEDS: LEVOFLOXACIN 500 MG TAB PO (06:22)
[2018-10-10 06:26] LABS: PLATELET COUNT 16 10^3/UL (140-415)
[2018-10-10 06:27] LABS: ADD MAN DIFF? YES
[2018-10-10] MEDS: INSULIN ASPART [NOVOLOG] 3 ML PEN SC ×7 (07:50→21:08)
[2018-10-10] MEDS: FAMOTIDINE 20 MG TAB PO (08:52)
[2018-10-10] MEDS: FLUCONAZOLE 100 MG TAB PO (08:52)
[2018-10-10] MEDS: ACYCLOVIR 400 MG TAB PO (08:52)
[2018-10-10] MEDS: MAGNESIUM OXIDE 400 MG TAB PO ×2 (08:52→21:03)
[2018-10-10] MEDS: LISINOPRIL 20 MG TAB PO ×2 (08:53→21:03)
[2018-10-10] MEDS: DEXAMETHASONE 0.1% 5 ML OPH BOTH EYES ×2 (08:57→21:03)
[2018-10-10 09:32] LABS: ANISOCYTOSIS 1+ (0-0); BAND NEUTROPHILS % (M) 4 % (0-4); LYMPHOCYTES #M 0.2 10^3/ul (0.8-2.9); LYMPHOCYTES % (M) 82 % (15-51); MONOCYTES % (M) 8 % (0-11); PLATELET ESTIMATE SIG DECREASED; POIKILOCYTOSIS 1+ (0-0); REACTIVE LYMPHOCYTES% (M) 2 % (0-0); SEGMENTED NEUTROPHILS (M) % 4 % (39-77); SMUDGE%M 3 % (0-0)
[2018-10-10 19:12] LABS: VANCOMYCIN,TROUGH 9.8 ug/ml (10.0-20.0)
[2018-10-10] MEDS: ACETAMINOPHEN 325 MG TAB PO (19:48)
[2018-10-10] MEDS: INSULIN GLARGINE [LANTus] (100 UNITS/ML) SYG SC (21:07)
[2018-10-10] MEDS: AL HYDROX/MG HYDROX/SIMETH 30 ML CUP PO (22:43)
[2018-10-11] MEDS: VANCOMYCIN HCL 1.25 GM in SOD CHLORIDE 0.9% 250 ML IVPB ×3 (04:46→20:54)
[2018-10-11 05:11] LABS: WHITE BLOOD COUNT 0.3 10^3/ul (4.8-10.8)
[2018-10-11 05:11] LABS: ABNORMAL IP MESSAGE 1; HEMATOCRIT 19.3 % (42.0-52.0); MEAN CORPUSCULAR HEMOGLOBIN 31.3 pg (29.0-33.0); MEAN CORPUSCULAR HGB CONC 36.3 g/dl (32.0-37.0); MEAN CORPUSCULAR VOLUME 86.2 fl (82.0-101.0); MEAN PLATELET VOLUME 9.1 fl (7.4-10.4); POSITIVE DIFF @See below; RED BLOOD COUNT 2.24 10^6/ul (4.70-6.10)
[2018-10-11] MEDS: LEVOFLOXACIN 500 MG TAB PO (05:20)
[2018-10-11 05:36] LABS: ADD MAN DIFF? YES; PLATELET COUNT 11 10^3/UL (140-415)
[2018-10-11 05:44] LABS: ALANINE AMINOTRANSFERASE 41 IU/L (13-69); ALBUMIN/GLOBULIN RATIO 0.93; ALKALINE PHOSPHATASE 79 IU/L (42-121); ANION GAP 8 (5-13); ASPARTATE AMINO TRANSFERASE 14 IU/L (15-46); BILIRUBIN,INDIRECT 0.5 mg/dl (0-1.1); BILIRUBIN,TOTAL 0.5 mg/dl (0.2-1.3); BLOOD UREA NITROGEN 8 mg/dl (7-20); CALCIUM 7.8 mg/dl (8.4-10.2); CARBON DIOXIDE 22 mmol/L (21-31); CHLORIDE 103 mmol/L (97-110); Estimated GFR > 60 mL/min (>60); GLUCOSE 99 mg/dl (70-220); LACTATE DEHYDROGENASE 272 IU/L (313-618); POTASSIUM 3.6 mmol/L (3.5-5.1); SODIUM 133 mmol/L (135-144); TOTAL PROTEIN 6.2 g/dl (6.1-8.1); URIC ACID 1.9 mg/dl (3.1-7.9)
[2018-10-11] MEDS: INSULIN ASPART [NOVOLOG] 3 ML PEN SC ×7 (07:50→21:00)
[2018-10-11] MEDS: MEROPENEM 500MG/50 ML (PMX) 50 ML IVPB ×3 (08:35→22:43)
[2018-10-11] MEDS: LOPERAMIDE 2 MG CAP PO (08:40)
[2018-10-11] MEDS: FLUCONAZOLE 100 MG TAB PO (08:40)
[2018-10-11] MEDS: DEXAMETHASONE 0.1% 5 ML OPH BOTH EYES ×2 (08:40→20:54)
[2018-10-11] MEDS: MAGNESIUM OXIDE 400 MG TAB PO ×2 (08:40→20:51)
[2018-10-11] MEDS: FAMOTIDINE 20 MG TAB PO (08:41)
[2018-10-11] MEDS: ACYCLOVIR 400 MG TAB PO (08:41)
[2018-10-11] MEDS: LISINOPRIL 20 MG TAB PO ×2 (08:41→20:52)
[2018-10-11 09:48] LABS: BAND NEUTROPHILS % (M) 3 % (0-4); LYMPHOCYTES #M 0.2 10^3/ul (0.8-2.9); LYMPHOCYTES % (M) 89 % (15-51); MONOCYTES % (M) 3 % (0-11); SEGMENTED NEUTROPHILS (M) % 4 % (39-77); SMUDGE%M 3 % (0-0)
[2018-10-11] MEDS: ACETAMINOPHEN 325 MG TAB PO ×3 (10:57→17:43)
[2018-10-11] MEDS: SACCHAROMYCES BOULARDII 250 MG CAP PO ×2 (12:48→22:42)
[2018-10-11 17:28] LABS: TYPE AND SCREEN 1
[2018-10-11] MEDS: DIPHENHYDRAMINE 25 MG CAP PO ×2 (17:30→17:43)
[2018-10-11] MEDS: INSULIN GLARGINE [LANTus] (100 UNITS/ML) SYG SC (21:02)
[2018-10-12] MEDS: VANCOMYCIN HCL 1.25 GM in SOD CHLORIDE 0.9% 250 ML IVPB ×4 (04:00→22:28)
[2018-10-12 05:27] LABS: WHITE BLOOD COUNT 0.4 10^3/ul (4.8-10.8)
[2018-10-12 05:27] LABS: ABNORMAL IP MESSAGE 1; HEMATOCRIT 20.3 % (42.0-52.0); HEMOGLOBIN 7.4 g/dl (14.0-18.0); MEAN CORPUSCULAR HEMOGLOBIN 31.1 pg (29.0-33.0); MEAN CORPUSCULAR HGB CONC 36.5 g/dl (32.0-37.0); MEAN CORPUSCULAR VOLUME 85.3 fl (82.0-101.0); MEAN PLATELET VOLUME 9.9 fl (7.4-10.4); PLATELET COUNT 40 10^3/UL (140-415); POSITIVE DIFF @See below; RED BLOOD COUNT 2.38 10^6/ul (4.70-6.10); RED CELL DISTRIBUTION WIDTH 12.3 % (11.5-14.5)
[2018-10-12 05:34] LABS: ADD MAN DIFF? YES
[2018-10-12 05:53] LABS: ALANINE AMINOTRANSFERASE 38 IU/L (13-69); ALBUMIN 2.9 g/dl (3.3-4.9); ALBUMIN/GLOBULIN RATIO 0.93; ALKALINE PHOSPHATASE 73 IU/L (42-121); ANION GAP 8 (5-13); ASPARTATE AMINO TRANSFERASE 14 IU/L (15-46); BILIRUBIN,INDIRECT 0.7 mg/dl (0-1.1); BILIRUBIN,TOTAL 0.7 mg/dl (0.2-1.3); BLOOD UREA NITROGEN 7 mg/dl (7-20); CALCIUM 7.9 mg/dl (8.4-10.2); CARBON DIOXIDE 25 mmol/L (21-31); CHLORIDE 103 mmol/L (97-110); CREATININE 0.43 mg/dl (0.61-1.24); Estimated GFR > 60 mL/min (>60); GLUCOSE 69 mg/dl (70-220); LACTATE DEHYDROGENASE 287 IU/L (313-618); POTASSIUM 3.3 mmol/L (3.5-5.1); SODIUM 136 mmol/L (135-144); URIC ACID 1.7 mg/dl (3.1-7.9)
[2018-10-12] MEDS: LEVOFLOXACIN 500 MG TAB PO (06:12)
[2018-10-12 06:17] LABS: PHOSPHORUS 3.2 mg/dl (2.5-4.9)
[2018-10-12] MEDS: MEROPENEM 500MG/50 ML (PMX) 50 ML IVPB ×3 (06:29→21:27)
[2018-10-12] MEDS: INSULIN ASPART [NOVOLOG] 3 ML PEN SC ×7 (08:54→21:31)
[2018-10-12] MEDS: FAMOTIDINE 20 MG TAB PO (08:58)
[2018-10-12] MEDS: SACCHAROMYCES BOULARDII 250 MG CAP PO ×2 (08:59→22:28)
[2018-10-12] MEDS: ACYCLOVIR 400 MG TAB PO (08:59)
[2018-10-12] MEDS: MAGNESIUM OXIDE 400 MG TAB PO ×2 (08:59→21:27)
[2018-10-12] MEDS: DEXAMETHASONE 0.1% 5 ML OPH BOTH EYES ×2 (08:59→21:27)
[2018-10-12] MEDS: FLUCONAZOLE 100 MG TAB PO (08:59)
[2018-10-12] MEDS: LISINOPRIL 20 MG TAB PO ×2 (09:00→21:28)
[2018-10-12] MEDS: POTASSIUM CHLORIDE (SR) 10 MEQ TAB PO (10:03)
[2018-10-12 12:32] LABS: ANISOCYTOSIS 1+ (0-0); BAND NEUTROPHILS % (M) 1 % (0-4); BLAST% (M) 1.2 % (0-0); BURR CELLS 1+ (0-0); GIANT THROMBO% (M) 1 % (0-0); LYMPHOCYTES #M 0.3 10^3/ul (0.8-2.9); LYMPHOCYTES % (M) 92 % (15-51); MONOCYTES % (M) 5 % (0-11); PLATELET ESTIMATE SIG DECREASED; POIKILOCYTOSIS 1+ (0-0); POLYCHROMASIA 3+ (0-0); REACTIVE LYMPHOCYTES% (M) 1 % (0-0); SMUDGE%M 55 % (0-0)
[2018-10-12] MEDS ORDERED: ALTEPLASE (CATHFLO) 2 MG INJ CATHETER (15:00)
[2018-10-12] MEDS: ALTEPLASE (CATHFLO) 2 MG INJ CATHETER (16:06)
[2018-10-12] MEDS: INSULIN GLARGINE [LANTus] (100 UNITS/ML) SYG SC (21:32)
[2018-10-13 05:05] LABS: ABNORMAL IP MESSAGE 1; HEMATOCRIT 19.7 % (42.0-52.0); MEAN CORPUSCULAR HEMOGLOBIN 30.4 pg (29.0-33.0); MEAN CORPUSCULAR VOLUME 86.8 fl (82.0-101.0); MEAN PLATELET VOLUME 9.6 fl (7.4-10.4); PLATELET COUNT 31 10^3/UL (140-415); POSITIVE DIFF @See below; RED BLOOD COUNT 2.27 10^6/ul (4.70-6.10); RED CELL DISTRIBUTION WIDTH 12.4 % (11.5-14.5)
[2018-10-13 05:05] LABS: WHITE BLOOD COUNT 0.4 10^3/ul (4.8-10.8)
[2018-10-13 05:22] LABS: ADD MAN DIFF? YES; HEMOGLOBIN 6.9 g/dl (14.0-18.0)
[2018-10-13 05:28] LABS: ALANINE AMINOTRANSFERASE 45 IU/L (13-69); ALBUMIN 2.8 g/dl (3.3-4.9); ALBUMIN/GLOBULIN RATIO 0.84; ALKALINE PHOSPHATASE 75 IU/L (42-121); ANION GAP 7 (5-13); ASPARTATE AMINO TRANSFERASE 22 IU/L (15-46); BILIRUBIN,INDIRECT 0.4 mg/dl (0-1.1); BILIRUBIN,TOTAL 0.4 mg/dl (0.2-1.3); BLOOD UREA NITROGEN 7 mg/dl (7-20); CALCIUM 7.8 mg/dl (8.4-10.2); CARBON DIOXIDE 24 mmol/L (21-31); CHLORIDE 104 mmol/L (97-110); CREATININE 0.51 mg/dl (0.61-1.24); Estimated GFR > 60 mL/min (>60); GLUCOSE 134 mg/dl (70-220); LACTATE DEHYDROGENASE 310 IU/L (313-618); POTASSIUM 3.4 mmol/L (3.5-5.1); SODIUM 135 mmol/L (135-144); TOTAL PROTEIN 6.1 g/dl (6.1-8.1)
[2018-10-13] MEDS: MEROPENEM 500MG/50 ML (PMX) 50 ML IVPB ×2 (05:32→14:12)
[2018-10-13] MEDS: VANCOMYCIN HCL 1.25 GM in SOD CHLORIDE 0.9% 250 ML IVPB ×2 (06:05→15:39)
[2018-10-13] MEDS: INSULIN ASPART [NOVOLOG] 3 ML PEN SC ×7 (07:50→21:00)
[2018-10-13] MEDS: ACYCLOVIR 400 MG TAB PO (08:42)
[2018-10-13] MEDS: FLUCONAZOLE 100 MG TAB PO (08:42)
[2018-10-13] MEDS: SACCHAROMYCES BOULARDII 250 MG CAP PO ×2 (08:42→21:10)
[2018-10-13] MEDS: MAGNESIUM OXIDE 400 MG TAB PO ×2 (08:42→21:11)
[2018-10-13] MEDS: FAMOTIDINE 20 MG TAB PO (08:43)
[2018-10-13] MEDS: LISINOPRIL 20 MG TAB PO ×2 (08:43→21:11)
[2018-10-13] MEDS: DEXAMETHASONE 0.1% 5 ML OPH BOTH EYES ×2 (08:44→21:10)
[2018-10-13 12:23] LABS: ANISOCYTOSIS 3+ (0-0); BLAST% (M) 4.7 % (0-0); LYMPHOCYTES #M 0.3 10^3/ul (0.8-2.9); LYMPHOCYTES % (M) 90 % (15-51); MICROCYTOSIS 2+ (0-0); MONOCYTES % (M) 2 % (0-11); OVALOCYTES 1+ (0-0); PLATELET ESTIMATE SIG DECREASED; POIKILOCYTOSIS 1+ (0-0); POLYCHROMASIA 3+ (0-0); REACTIVE LYMPHOCYTES% (M) 3 % (0-0); SMUDGE%M 5 % (0-0)
[2018-10-13 13:12] LABS: IMMEDIATE SPIN CROSSMATCH 1 4
[2018-10-13] MEDS: INSULIN GLARGINE [LANTus] (100 UNITS/ML) SYG SC (21:20)
[2018-10-14] MEDS: MEROPENEM 500MG/50 ML (PMX) 50 ML IVPB ×4 (00:25→21:35)
[2018-10-14] MEDS: VANCOMYCIN HCL 1.25 GM in SOD CHLORIDE 0.9% 250 ML IVPB ×4 (00:25→22:13)
[2018-10-14 05:05] LABS: ADD MAN DIFF? NO
[2018-10-14 05:07] LABS: ABNORMAL IP MESSAGE 1; HEMATOCRIT 25.4 % (42.0-52.0); HEMOGLOBIN 9.2 g/dl (14.0-18.0); MEAN CORPUSCULAR HEMOGLOBIN 31.1 pg (29.0-33.0); MEAN CORPUSCULAR HGB CONC 36.2 g/dl (32.0-37.0); MEAN CORPUSCULAR VOLUME 85.8 fl (82.0-101.0); MEAN PLATELET VOLUME 10.1 fl (7.4-10.4); PLATELET COUNT 42 10^3/UL (140-415); POSITIVE DIFF @See below; RED BLOOD COUNT 2.96 10^6/ul (4.70-6.10)
[2018-10-14 05:07] LABS: WHITE BLOOD COUNT 0.7 10^3/ul (4.8-10.8)
[2018-10-14 05:32] LABS: PHOSPHORUS 3.3 mg/dl (2.5-4.9)
[2018-10-14 05:35] LABS: ANION GAP 9 (5-13); BLOOD UREA NITROGEN 7 mg/dl (7-20); CALCIUM 7.9 mg/dl (8.4-10.2); CARBON DIOXIDE 27 mmol/L (21-31); CHLORIDE 102 mmol/L (97-110); CREATININE 0.43 mg/dl (0.61-1.24); Estimated GFR > 60 mL/min (>60); GLUCOSE 113 mg/dl (70-220); POTASSIUM 3.2 mmol/L (3.5-5.1); SODIUM 138 mmol/L (135-144)
[2018-10-14] MEDS: INSULIN ASPART [NOVOLOG] 3 ML PEN SC ×7 (07:50→21:42)
[2018-10-14] MEDS: LISINOPRIL 20 MG TAB PO ×2 (08:30→21:36)
[2018-10-14] MEDS: FAMOTIDINE 20 MG TAB PO (08:30)
[2018-10-14] MEDS: FLUCONAZOLE 100 MG TAB PO (08:30)
[2018-10-14] MEDS: MAGNESIUM OXIDE 400 MG TAB PO ×2 (08:30→21:35)
[2018-10-14] MEDS: ACYCLOVIR 400 MG TAB PO (08:30)
[2018-10-14] MEDS: DEXAMETHASONE 0.1% 5 ML OPH BOTH EYES ×2 (08:31→21:36)
[2018-10-14] MEDS: SACCHAROMYCES BOULARDII 250 MG CAP PO ×2 (08:33→21:36)
[2018-10-14 10:17] LABS: ANISOCYTOSIS 1+ (0-0); BAND NEUTROPHILS % (M) 1 % (0-4); BLAST% (M) 7.1 % (0-0); BURR CELLS 1+ (0-0); ERYTHROBLAST% (NRBC) (M) 2 % (0-0); GIANT THROMBO% (M) 2 % (0-0); LYMPHOCYTES #M 0.5 10^3/ul (0.8-2.9); LYMPHOCYTES % (M) 75 % (15-51); MONOCYTES % (M) 12 % (0-11); MYELOCYTES % (M) 1 % (0-0); PLATELET ESTIMATE SIG DECREASED; POIKILOCYTOSIS 1+ (0-0); POLYCHROMASIA 3+ (0-0); RBC MORPHOLOGY COMMENT @See below; REACTIVE LYMPHOCYTES% (M) 3 % (0-0); SEGMENTED NEUTROPHILS (M) % 2 % (39-77); SMUDGE%M 19 % (0-0); TARGET CELLS 1+ (0-0); WBC MORPHOLOGY COMMENT @See below
[2018-10-14] MEDS: POTASSIUM CHLORIDE (SR) 20 MEQ TAB PO (10:28)
[2018-10-14] MEDS: INSULIN GLARGINE [LANTus] (100 UNITS/ML) SYG SC (21:41)
[2018-10-15] MEDS: MEROPENEM 500MG/50 ML (PMX) 50 ML IVPB ×3 (05:44→20:52)
[2018-10-15 05:50] LABS: WHITE BLOOD COUNT 1.4 10^3/ul (4.8-10.8)
[2018-10-15 05:50] LABS: ABNORMAL IP MESSAGE 1; HEMATOCRIT 28.7 % (42.0-52.0); MEAN CORPUSCULAR HEMOGLOBIN 30.4 pg (29.0-33.0); MEAN CORPUSCULAR HGB CONC 34.8 g/dl (32.0-37.0); MEAN CORPUSCULAR VOLUME 87.2 fl (82.0-101.0); MEAN PLATELET VOLUME 10.1 fl (7.4-10.4); PLATELET COUNT 86 10^3/UL (140-415); POSITIVE DIFF @See below; RED BLOOD COUNT 3.29 10^6/ul (4.70-6.10); RED CELL DISTRIBUTION WIDTH 12.2 % (11.5-14.5)
[2018-10-15 05:54] LABS: ADD MAN DIFF? YES
[2018-10-15 06:19] LABS: ANION GAP 8 (5-13); BLOOD UREA NITROGEN 10 mg/dl (7-20); CALCIUM 8.5 mg/dl (8.4-10.2); CARBON DIOXIDE 27 mmol/L (21-31); CHLORIDE 101 mmol/L (97-110); Estimated GFR > 60 mL/min (>60); GLUCOSE 131 mg/dl (70-220); POTASSIUM 3.6 mmol/L (3.5-5.1); SODIUM 136 mmol/L (135-144)
[2018-10-15 06:20] LABS: PHOSPHORUS 3.7 mg/dl (2.5-4.9)
[2018-10-15] MEDS: VANCOMYCIN HCL 1.25 GM in SOD CHLORIDE 0.9% 250 ML IVPB ×3 (06:29→21:43)
[2018-10-15 07:31] LABS: ANISOCYTOSIS 1+ (0-0); BAND NEUTROPHILS % (M) 1 % (0-4); GIANT THROMBO% (M) 10 % (0-0); LYMPHOCYTES #M 0.7 10^3/ul (0.8-2.9); LYMPHOCYTES % (M) 55 % (15-51); METAMYELOCYTES %M 1 % (0-0); MONOCYTE #M 0.2 10^3/ul (0.3-0.9); MONOCYTES % (M) 18 % (0-11); MYELOCYTES % (M) 2 % (0-0); PLATELET ESTIMATE DECREASED; POIKILOCYTOSIS 1+ (0-0); PROMYELOCYTES % (M) 2 % (0-0); REACTIVE LYMPHOCYTES #M 0.2 10^3/ul (0.0-0.0); REACTIVE LYMPHOCYTES% (M) 17 % (0-0); SEGMENTED NEUTROPHILS (M) % 3 % (39-77); SMUDGE%M 49 % (0-0)
[2018-10-15] MEDS: INSULIN ASPART [NOVOLOG] 3 ML PEN SC ×7 (07:50→21:08)
[2018-10-15] MEDS: ACYCLOVIR 400 MG TAB PO (08:34)
[2018-10-15] MEDS: SACCHAROMYCES BOULARDII 250 MG CAP PO ×2 (08:34→20:51)
[2018-10-15] MEDS: MAGNESIUM OXIDE 400 MG TAB PO ×2 (08:35→20:51)
[2018-10-15] MEDS: LISINOPRIL 20 MG TAB PO ×2 (08:35→20:52)
[2018-10-15] MEDS: FLUCONAZOLE 100 MG TAB PO (08:35)
[2018-10-15] MEDS: FAMOTIDINE 20 MG TAB PO (08:35)
[2018-10-15] MEDS: FUROSEMIDE 20 MG TAB PO (08:35)
[2018-10-15] MEDS: DEXAMETHASONE 0.1% 5 ML OPH BOTH EYES ×2 (09:04→20:51)
[2018-10-15 10:15] LABS: PATH REVIEW Y
[2018-10-15] MEDS: INSULIN GLARGINE [LANTus] (100 UNITS/ML) SYG SC (21:08)
[2018-10-16] MEDS: MEROPENEM 500MG/50 ML (PMX) 50 ML IVPB ×3 (05:48→20:31)
[2018-10-16 06:15] LABS: ABNORMAL IP MESSAGE 1; HEMATOCRIT 28.1 % (42.0-52.0); MEAN CORPUSCULAR HGB CONC 35.6 g/dl (32.0-37.0); MEAN PLATELET VOLUME 9.4 fl (7.4-10.4); PLATELET COUNT 180 10^3/UL (140-415); POSITIVE DIFF @See below; RED BLOOD COUNT 3.23 10^6/ul (4.70-6.10)
[2018-10-16 06:15] LABS: WHITE BLOOD COUNT 2.4 10^3/ul (4.8-10.8)
[2018-10-16 06:17] LABS: ADD MAN DIFF? YES
[2018-10-16] MEDS: VANCOMYCIN HCL 1.25 GM in SOD CHLORIDE 0.9% 250 ML IVPB ×3 (06:24→21:22)
[2018-10-16 06:34] LABS: PHOSPHORUS 4.7 mg/dl (2.5-4.9)
[2018-10-16 06:59] LABS: ANION GAP 9 (5-13); BLOOD UREA NITROGEN 10 mg/dl (7-20); CALCIUM 8.9 mg/dl (8.4-10.2); CARBON DIOXIDE 28 mmol/L (21-31); CHLORIDE 100 mmol/L (97-110); CREATININE 0.48 mg/dl (0.61-1.24); Estimated GFR > 60 mL/min (>60); GLUCOSE 151 mg/dl (70-220); POTASSIUM 3.8 mmol/L (3.5-5.1); SODIUM 137 mmol/L (135-144)
[2018-10-16] MEDS: ACYCLOVIR 400 MG TAB PO (08:20)
[2018-10-16] MEDS: FLUCONAZOLE 100 MG TAB PO (08:20)
[2018-10-16] MEDS: SACCHAROMYCES BOULARDII 250 MG CAP PO ×2 (08:20→20:29)
[2018-10-16] MEDS: INSULIN ASPART [NOVOLOG] 3 ML PEN SC ×7 (08:21→21:00)
[2018-10-16] MEDS: FUROSEMIDE 20 MG TAB PO (08:22)
[2018-10-16] MEDS: MAGNESIUM OXIDE 400 MG TAB PO ×2 (08:22→20:29)
[2018-10-16] MEDS: FAMOTIDINE 20 MG TAB PO (08:23)
[2018-10-16] MEDS: DEXAMETHASONE 0.1% 5 ML OPH BOTH EYES ×2 (08:23→20:30)
[2018-10-16] MEDS: LISINOPRIL 20 MG TAB PO ×2 (08:23→20:29)
[2018-10-16 08:33] LABS: BAND NEUTROPHILS #M 0.1 10^3/ul (0.0-0.6); BAND NEUTROPHILS % (M) 5 % (0-4); BURR CELLS 2+ (0-0); GIANT THROMBO% (M) 3 % (0-0); LYMPHOCYTES #M 0.9 10^3/ul (0.8-2.9); LYMPHOCYTES % (M) 39 % (15-51); METAMYELOCYTES %M 3 % (0-0); MONOCYTE #M 0.7 10^3/ul (0.3-0.9); MONOCYTES % (M) 31 % (0-11); MYELOCYTES % (M) 3 % (0-0); OVALOCYTES 1+ (0-0); PLASMAC%(M) 1 % (0); PLATELET ESTIMATE NORMAL; POIKILOCYTOSIS 2+ (0-0); PROMYELOCYTES % (M) 2 % (0-0); REACTIVE LYMPHOCYTES% (M) 3 % (0-0); SEG NEUT #M 0.3 10^3/ul (1.6-7.5); SEGMENTED NEUTROPHILS (M) % 11 % (39-77); SMUDGE%M 35 % (0-0)
[2018-10-16] MEDS: INSULIN GLARGINE [LANTus] (100 UNITS/ML) SYG SC (20:39)
[2018-10-17] MEDS: MEROPENEM 500MG/50 ML (PMX) 50 ML IVPB (05:24)
[2018-10-17 06:04] LABS: ABNORMAL IP MESSAGE 1; HEMATOCRIT 29.7 % (42.0-52.0); HEMOGLOBIN 10.2 g/dl (14.0-18.0); MEAN CORPUSCULAR HGB CONC 34.3 g/dl (32.0-37.0); MEAN CORPUSCULAR VOLUME 90.3 fl (82.0-101.0); MEAN PLATELET VOLUME 8.9 fl (7.4-10.4); PLATELET COUNT 305 10^3/UL (140-415); POSITIVE DIFF @See below; RED BLOOD COUNT 3.29 10^6/ul (4.70-6.10); RED CELL DISTRIBUTION WIDTH 12.2 % (11.5-14.5)
[2018-10-17 06:04] LABS: WHITE BLOOD COUNT 4.5 10^3/ul (4.8-10.8)
[2018-10-17 06:06] LABS: ADD MAN DIFF? YES
[2018-10-17] MEDS: VANCOMYCIN HCL 1.25 GM in SOD CHLORIDE 0.9% 250 ML IVPB (06:29)
[2018-10-17 06:31] LABS: MAGNESIUM 2.1 mg/dl (1.7-2.5)
[2018-10-17 06:31] LABS: PHOSPHORUS 5.5 mg/dl (2.5-4.9)
[2018-10-17 06:36] LABS: ANION GAP 6 (5-13); BLOOD UREA NITROGEN 10 mg/dl (7-20); CARBON DIOXIDE 31 mmol/L (21-31); CHLORIDE 100 mmol/L (97-110); Estimated GFR > 60 mL/min (>60); GLUCOSE 109 mg/dl (70-220); POTASSIUM 3.6 mmol/L (3.5-5.1); SODIUM 137 mmol/L (135-144)
[2018-10-17 07:43] LABS: ANISOCYTOSIS 1+ (0-0); BAND NEUTROPHILS #M 0.3 10^3/ul (0.0-0.6); BAND NEUTROPHILS % (M) 8 % (0-4); GIANT THROMBO% (M) 1 % (0-0); LYMPHOCYTES #M 1.8 10^3/ul (0.8-2.9); LYMPHOCYTES % (M) 42 % (15-51); METAMYELOCYTES %M 2 % (0-0); MICROCYTOSIS 1+ (0-0); MONOCYTE #M 1.2 10^3/ul (0.3-0.9); MONOCYTES % (M) 28 % (0-11); MYELOCYTES #M 0.2 10^3/ul (0.0-0.0); MYELOCYTES % (M) 5 % (0-0); PLATELET ESTIMATE NORMAL; PROMYELOCYTES #M 0.1 10^3/ul (0-0); PROMYELOCYTES % (M) 3 % (0-0); SEG NEUT #M 0.4 10^3/ul (1.6-7.5); SEGMENTED NEUTROPHILS (M) % 8 % (39-77); SMUDGE%M 9 % (0-0)
[2018-10-17] MEDS: INSULIN ASPART [NOVOLOG] 3 ML PEN SC ×7 (07:50→20:59)
[2018-10-17] MEDS: MAGNESIUM OXIDE 400 MG TAB PO ×2 (08:29→21:02)
[2018-10-17] MEDS: FUROSEMIDE 20 MG TAB PO (08:29)
[2018-10-17] MEDS: FAMOTIDINE 20 MG TAB PO (08:29)
[2018-10-17] MEDS: LISINOPRIL 20 MG TAB PO ×2 (08:30→21:02)
[2018-10-17] MEDS: SACCHAROMYCES BOULARDII 250 MG CAP PO ×2 (08:30→21:03)
[2018-10-17] MEDS: FLUCONAZOLE 100 MG TAB PO (08:30)
[2018-10-17] MEDS: ACYCLOVIR 400 MG TAB PO (08:30)
[2018-10-17] MEDS: DEXAMETHASONE 0.1% 5 ML OPH BOTH EYES ×2 (08:30→21:04)
[2018-10-17 14:45] LABS: VANCOMYCIN,TROUGH 16.8 ug/ml (10.0-20.0)
[2018-10-17] MEDS: INSULIN GLARGINE [LANTus] (100 UNITS/ML) SYG SC (21:01)
[2018-10-17] MEDS: DOXYCYCLINE 100 MG TAB PO (21:02)
[2018-10-17] MEDS: AMLODIPINE 2.5 MG TAB PO (21:03)
[2018-10-18 05:30] LABS: ABNORMAL IP MESSAGE 1; HEMATOCRIT 32.9 % (42.0-52.0); MEAN CORPUSCULAR HEMOGLOBIN 30.6 pg (29.0-33.0); MEAN CORPUSCULAR HGB CONC 33.4 g/dl (32.0-37.0); MEAN CORPUSCULAR VOLUME 91.4 fl (82.0-101.0); MEAN PLATELET VOLUME 8.7 fl (7.4-10.4); PLATELET COUNT 451 10^3/UL (140-415); POSITIVE DIFF @See below; RED CELL DISTRIBUTION WIDTH 12.4 % (11.5-14.5)
[2018-10-18 05:32] LABS: ADD MAN DIFF? YES
[2018-10-18] MEDS: LEVOFLOXACIN 250 MG TAB PO (05:46)
[2018-10-18 06:07] LABS: MAGNESIUM 2.1 mg/dl (1.7-2.5)
[2018-10-18 06:07] LABS: PHOSPHORUS 5.6 mg/dl (2.5-4.9)
[2018-10-18 06:21] LABS: ANION GAP 8 (5-13); BLOOD UREA NITROGEN 14 mg/dl (7-20); CALCIUM 9.5 mg/dl (8.4-10.2); CARBON DIOXIDE 30 mmol/L (21-31); CHLORIDE 100 mmol/L (97-110); CREATININE 0.57 mg/dl (0.61-1.24); Estimated GFR > 60 mL/min (>60); GLUCOSE 168 mg/dl (70-220); SODIUM 138 mmol/L (135-144)
[2018-10-18 07:51] LABS: BAND NEUTROPHILS #M 0.4 10^3/ul (0.0-0.6); BAND NEUTROPHILS % (M) 6 % (0-4); BASOPHILS % (M) 1 % (0-2); GIANT THROMBO% (M) 1 % (0-0); LYMPHOCYTES #M 2.1 10^3/ul (0.8-2.9); LYMPHOCYTES % (M) 27 % (15-51); METAMYELOCYTES #M 0.8 10^3/ul (0.0-0.0); METAMYELOCYTES %M 10 % (0-0); MONOCYTES % (M) 26 % (0-11); MYELOCYTES #M 0.5 10^3/ul (0.0-0.0); MYELOCYTES % (M) 7 % (0-0); PLATELET ESTIMATE INCREASED; REACTIVE LYMPHOCYTES #M 0.2 10^3/ul (0.0-0.0); REACTIVE LYMPHOCYTES% (M) 3 % (0-0); SEG NEUT #M 1.5 10^3/ul (1.6-7.5); SEGMENTED NEUTROPHILS (M) % 18 % (39-77); SMUDGE%M 8 % (0-0)
[2018-10-18 07:58] LABS: TOXIC GRANULATION 1+ (0-0)
[2018-10-18] MEDS: INSULIN ASPART [NOVOLOG] 3 ML PEN SC ×7 (09:27→20:28)
[2018-10-18] MEDS: DOXYCYCLINE 100 MG TAB PO ×2 (09:28→20:23)
[2018-10-18] MEDS: ACYCLOVIR 400 MG TAB PO (09:29)
[2018-10-18] MEDS: FLUCONAZOLE 100 MG TAB PO (09:29)
[2018-10-18] MEDS: FAMOTIDINE 20 MG TAB PO (09:29)
[2018-10-18] MEDS: SACCHAROMYCES BOULARDII 250 MG CAP PO ×2 (09:29→20:24)
[2018-10-18] MEDS: FUROSEMIDE 20 MG TAB PO (09:29)
[2018-10-18] MEDS: LISINOPRIL 20 MG TAB PO ×2 (09:30→20:24)
[2018-10-18] MEDS: AMLODIPINE 2.5 MG TAB PO (09:30)
[2018-10-18] MEDS: MAGNESIUM OXIDE 400 MG TAB PO ×2 (09:30→20:23)
[2018-10-18] MEDS: DEXAMETHASONE 0.1% 5 ML OPH BOTH EYES ×2 (09:31→20:24)
[2018-10-18] MEDS: AMLODIPINE 5 MG TAB PO (20:24)
[2018-10-18] MEDS: INSULIN GLARGINE [LANTus] (100 UNITS/ML) SYG SC (20:26)
[2018-10-19 04:51] LABS: WHITE BLOOD COUNT 10.4 10^3/ul (4.8-10.8)
[2018-10-19 04:51] LABS: ABNORMAL IP MESSAGE 1; HEMATOCRIT 32.1 % (42.0-52.0); HEMOGLOBIN 10.7 g/dl (14.0-18.0); MEAN CORPUSCULAR HEMOGLOBIN 30.5 pg (29.0-33.0); MEAN CORPUSCULAR HGB CONC 33.3 g/dl (32.0-37.0); MEAN CORPUSCULAR VOLUME 91.5 fl (82.0-101.0); MEAN PLATELET VOLUME 8.4 fl (7.4-10.4); PLATELET COUNT 524 10^3/UL (140-415); POSITIVE DIFF @See below; RED BLOOD COUNT 3.51 10^6/ul (4.70-6.10); RED CELL DISTRIBUTION WIDTH 12.5 % (11.5-14.5)
[2018-10-19 04:57] LABS: ADD MAN DIFF? YES
[2018-10-19 05:17] LABS: ANION GAP 9 (5-13); BLOOD UREA NITROGEN 12 mg/dl (7-20); CALCIUM 9.2 mg/dl (8.4-10.2); CARBON DIOXIDE 29 mmol/L (21-31); CHLORIDE 98 mmol/L (97-110); CREATININE 0.57 mg/dl (0.61-1.24); Estimated GFR > 60 mL/min (>60); GLUCOSE 183 mg/dl (70-220); POTASSIUM 3.7 mmol/L (3.5-5.1); SODIUM 136 mmol/L (135-144)
[2018-10-19] MEDS: LEVOFLOXACIN 250 MG TAB PO (05:32)
[2018-10-19] MEDS: DOXYCYCLINE 100 MG TAB PO (08:24)
[2018-10-19] MEDS: MAGNESIUM OXIDE 400 MG TAB PO (08:24)
[2018-10-19] MEDS: SACCHAROMYCES BOULARDII 250 MG CAP PO (08:24)
[2018-10-19] MEDS: AMLODIPINE 5 MG TAB PO (08:25)
[2018-10-19] MEDS: LISINOPRIL 20 MG TAB PO (08:25)
[2018-10-19] MEDS: ACYCLOVIR 400 MG TAB PO (08:26)
[2018-10-19] MEDS: FLUCONAZOLE 100 MG TAB PO (08:26)
[2018-10-19] MEDS: FAMOTIDINE 20 MG TAB PO (08:26)
[2018-10-19] MEDS: FUROSEMIDE 20 MG TAB PO (08:26)
[2018-10-19] MEDS: DEXAMETHASONE 0.1% 5 ML OPH BOTH EYES (08:27)
[2018-10-19] MEDS: INSULIN ASPART [NOVOLOG] 3 ML PEN SC ×5 (08:31→13:21)
[2018-10-19 10:28] LABS: ANISOCYTOSIS 1+ (0-0); BAND NEUTROPHILS #M 2.2 10^3/ul (0.0-0.6); BAND NEUTROPHILS % (M) 22 % (0-4); LYMPHOCYTES #M 1.3 10^3/ul (0.8-2.9); LYMPHOCYTES % (M) 13 % (15-51); METAMYELOCYTES #M 0.6 10^3/ul (0.0-0.0); METAMYELOCYTES %M 6 % (0-0); MONOCYTE #M 1.7 10^3/ul (0.3-0.9); MONOCYTES % (M) 17 % (0-11); MYELOCYTES #M 0.6 10^3/ul (0.0-0.0); MYELOCYTES % (M) 6 % (0-0); PLATELET ESTIMATE NORMAL; POIKILOCYTOSIS 1+ (0-0); PROMYELOCYTES #M 0.3 10^3/ul (0-0); PROMYELOCYTES % (M) 3 % (0-0); REACTIVE LYMPHOCYTES #M 0.3 10^3/ul (0.0-0.0); REACTIVE LYMPHOCYTES% (M) 3 % (0-0); SEG NEUT #M 3.2 10^3/ul (1.6-7.5); SEGMENTED NEUTROPHILS (M) % 29 % (39-77); SMUDGE%M 5 % (0-0)
== END 2018-10-19 16:55 | disposition home or self-care (01) | DRG 834 ==
LOC: 2NE 09-19 16:45 → E/R 14:36 → MS1 09-24 17:25 → 2NE 16:10
PROVIDERS: Internal Medicine
PROC: 05HM33Z Insertion of Infusion Device into Right Internal Jugular Vein, Percutaneous Approach (ICD-10-PCS; 2018-09-23 18:00)
PROC: B513YZA Fluoroscopy of Right Jugular Veins using Other Contrast, Guidance (ICD-10-PCS; 2018-09-23 18:00)
PROC: 07DR3ZX Extraction of Iliac Bone Marrow, Percutaneous Approach, Diagnostic (ICD-10-PCS; principal; 2018-09-23 18:15)
PROC: 30233R1 Transfusion of Nonautologous Platelets into Peripheral Vein, Percutaneous Approach (ICD-10-PCS; 2018-09-23 18:15)
PROC: 30233N1 Transfusion of Nonautologous Red Blood Cells into Peripheral Vein, Percutaneous Approach (ICD-10-PCS; 2018-09-23 18:15)
PROC: 3E05305 Introduction of Other Antineoplastic into Peripheral Artery, Percutaneous Approach (ICD-10-PCS; 2018-09-23 18:15)
DX: C92.00 Acute myeloblastic leukemia, not having achieved remission (principal); I50.23 Acute on chronic systolic (congestive) heart failure; D61.810 Antineoplastic chemotherapy induced pancytopenia; I42.9 Cardiomyopathy, unspecified; R50.81 Fever presenting with conditions classified elsewhere; D69.6 Thrombocytopenia, unspecified; E11.9 Type 2 diabetes mellitus without complications; R13.10 Dysphagia, unspecified; D63.8 Anemia in other chronic diseases classified elsewhere; I11.0 Hypertensive heart disease with heart failure; T45.1X5A Adverse effect of antineoplastic and immunosuppressive drugs, initial encounter
CPT/HCPCS: 36415; 36430; 36556; 36558; 70450; 71045; 76942; 77012; 80048; 80053; 80061; 80202; 81001; 81003; 82270; 82728; 82962; 83010; 83036; 83540; 83605; 83615; 83690; 83735; 84100; 84443; 84560; 85025; 85049; 85362; 85378; 85384; 85610; 85651; 85670; 85730; 86140; 86644; 86850; 86900; 86901; 86920; 86945; 87040-91; 87075; 87086; 88305; 88311; 88313; 88341; 88342; 93005; 93306; 99285-25; J9100